=== PATIENT | male | born 1965 | race Caucasian/White ===

== ENCOUNTER 2022-07-16 15:57 | Inpatient (IN) | payer BC ==
[~2022-07-16] VITALS: Ht 190.5 cm; Wt 125.0 kg
[2022-07-16 17:13] LABS: BASOPHILS # (AUTO) 0.1 10^3/uL (0.0-0.1); BASOPHILS % (AUTO) 0 % (0-10); EOSINOPHILS # (AUTO) 0.2 10^3/uL (0.0-0.3); EOSINOPHILS % (AUTO) 1 % (0-10); HEMATOCRIT 44 % (40-54); HEMOGLOBIN 15.4 g/dL (13.3-17.7); LYMPHOCYTES # (AUTO) 1.4 10^3/uL (1.0-4.0); LYMPHOCYTES % (AUTO) 7 % (12-44); MEAN CORPUSCULAR HEMOGLOBIN 32 pg (25-34); MEAN CORPUSCULAR HGB CONC 35 g/dL (32-36); MEAN CORPUSCULAR VOLUME 91 fL (80-99); MEAN PLATELET VOLUME 9.5 fL (9.0-12.2); MONOCYTES # (AUTO) 2.3 10^3/uL (0.0-1.0); MONOCYTES % (AUTO) 11 % (0-12); NEUTROPHILS # (AUTO) 17.7 10^3/uL (1.8-7.8); NEUTROPHILS % (AUTO) 81 % (42-75); PLATELET COUNT 275 10^3/uL (130-400); WHITE BLOOD COUNT 21.9 10^3/uL (4.3-11.0)
--- NOTE | 2022-07-16 17:13 | ED Abdominal Pain ---
General Chief Complaint: Abdominal/GI Problems Stated Complaint: ABDOMINAL PAIN Nursing Triage Note: PT STATES HAVING A PERF BOWEL, WAS SEEN IN [facility], FLUID AND ABSCESS, CT DONE THERE THIS MORNING, LOW ABD PAIN FOR ABOUT A WK, NORMAL BM 6 TIMES TODAY SMALL AMOUNTS Source of Information: Patient Exam Limitations: No Limitations History of Present Illness Date Seen by Provider: Jul 16, 2022 Time Seen by Provider: 16:57 Initial Comments 56-year-old male presents to the ED with reports of left lower quadrant abdominal pain since last Friday. He states that he thought he was constipated, and was taking laxatives. Reports he has had several small bowel movements, denies diarrhea. Reports that he saw his primary today who ordered a CT of his abdomen pelvis. He was called with the result told to come to the ER due to a perforated bowel. He denied known fevers, although he was found to have a temperature of 100.9 here today. Denies any chest pain, shortness of air, nausea, vomiting. Last bowel movement was about 2 hours ago. His last meal was last night. He reports reports that he sipped on a Coke around 2 PM, he did not drink a full can. Past medical history includes A-fib, hyperlipidemia, hypothyroidism. He takes flecainide, atorvastatin, levothyroxine, carvedilol, Xarelto. Allergies and Home Medications Allergies Coded Allergies: No Known Drug Allergies (Unverified , 07/16/22) Patient Home Medication List Home Medication List Reviewed: Yes Atorvastatin Calcium (Atorvastatin Calcium) 10 Mg Tablet, 10 MG PO 1800, (Reported) Entered as Reported by: JODY GARRETT on 07/17/221202 Last Action: Held Carvedilol (Carvedilol) 25 Mg Tablet, 25 MG PO BID WITH MEALS, (Reported) Entered as Reported by: JODY GARRETT on 07/17/221202 Last Action: Held Cetirizine HCl (Cetirizine HCl) 10 Mg Tablet, 10 MG PO DAILY, (Reported) Entered as Reported by: JODY GARRETT on 07/17/221202 Last Action: Held Flecainide Acetate (Flecainide Acetate) 100 Mg Tablet, 100 MG PO BID WITH MEALS, (Reported) Entered as Reported by: JODY GARRETT on 07/17/221202 Last Action: Continued L.acidoph & Paracasei,B.lactis (Probiotic) 10 Billion Cell Capsule, 1 EACH PO DAILY, (Reported) Entered as Reported by: JODY GARRETT on 07/17/221202 Last Action: Held Levothyroxine Sodium (Levothyroxine Sodium) 50 Mcg Tablet, 50 MCG PO DAILY, (Reported) Entered as Reported by: JODY GARRETT on 07/17/221202 Last Action: Held Multivitamin (Multivitamin) 1 Each Tablet, 1 EACH PO 1800, (Reported) Entered as Reported by: JODY GARRETT on 07/17/221202 Last Action: Held Rivaroxaban (Xarelto Tablet) 20 Mg Tablet, 20 MG PO 1800, (Reported) Entered as Reported by: JODY GARRETT on 07/17/221202 Last Action: Held Review of Systems Review of Systems Constitutional: see HPI Past Fmnddhy-Yzyuld-Teijvq Hx Patient Social History Tobacco Use?: No Substance use?: No Alcohol Use?: No Past Medical History Surgery/Hospitalization HX: HEART ABLATION HX OF A FIB Physical Exam Vital Signs Vital Signs - First Documented 07/16/22 16:38 Temp 38.0 Pulse 89 Resp 22 B/P (MAP) 122/82 (95) Pulse Ox 95 O2 Delivery Room Air Capillary Refill : Less Than 3 Seconds Height/Weight/BMI Height: '" Weight: lbs. oz. kg; 34.00 BMI Method: General Appearance: WD/WN, mild distress Neck: supple, normal inspection Respiratory: lungs clear, normal breath sounds, no respiratory distress, no accessory muscle use Cardiovascular: regular rate, rhythm, no edema, no gallop, no JVD, no murmur Gastrointestinal: normal bowel sounds, soft (Soft in right lower, right upper, left upper), guarding (Left lower quadrant); No rebound; tenderness (Left lower quadrant) Neurologic/Psychiatric: alert, normal mood/affect Skin: normal color, warm/dry Focused Exam Lactate Level 07/16/22 17:00: Lactic Acid Level 1.01 Lactic Acid Level Laboratory Tests Test 07/16/22 17:00 Lactic Acid Level 1.01 MMOL/L (0.50-2.00) Progress/Results/Core Measures Results/Orders Lab Results Laboratory Tests Test 07/16/22 17:00 07/16/22 17:13 Range/Units White Blood Count 21.9 H 4.3-11.0 10^3/uL Red Blood Count 4.76 4.30-5.52 10^6/uL Hemoglobin 15.4 13.3-17.7 g/dL Hematocrit 44 40-54 % Mean Corpuscular Volume 91 80-99 fL Mean Corpuscular Hemoglobin 32 25-34 pg Mean Corpuscular Hemoglobin Concent 35 32-36 g/dL Red Cell Distribution Width 12.9 10.0-14.5 % Platelet Count 275 130-400 10^3/uL Mean Platelet Volume 9.5 9.0-12.2 fL Immature Granulocyte % (Auto) 1 % Neutrophils (%) (Auto) 81 H 42-75 % Lymphocytes (%) (Auto) 7 L 12-44 % Monocytes (%) (Auto) 11 0-12 % Eosinophils (%) (Auto) 1 0-10 % Basophils (%) (Auto) 0 0-10 % Neutrophils # (Auto) 17.7 H 1.8-7.8 10^3/uL Lymphocytes # (Auto) 1.4 1.0-4.0 10^3/uL Monocytes # (Auto) 2.3 H 0.0-1.0 10^3/uL Eosinophils # (Auto) 0.2 0.0-0.3 10^3/uL Basophils # (Auto) 0.1 0.0-0.1 10^3/uL Immature Granulocyte # (Auto) 0.2 H 0.0-0.1 10^3/uL Neutrophils % (Manual) 82 % Lymphocytes % (Manual) 9 % Monocytes % (Manual) 6 % Eosinophils % (Manual) 1 % Band Neutrophils 2 % Blood Morphology Comment NORMAL Prothrombin Time 19.3 H 12.2-14.7 SEC INR Comment 1.6 H 0.8-1.4 Activated Partial Thromboplast Time 35 24-35 SEC Sodium Level 138 135-145 MMOL/L Potassium Level 3.9 3.6-5.0 MMOL/L Chloride Level 102 98-107 MMOL/L Carbon Dioxide Level 25 21-32 MMOL/L Anion Gap 11 5-14 MMOL/L Blood Urea Nitrogen 10 7-18 MG/DL Creatinine 1.10 0.60-1.30 MG/DL Estimat Glomerular Filtration Rate 80 BUN/Creatinine Ratio 9 Glucose Level 111 H 70-105 MG/DL Lactic Acid Level 1.01 0.50-2.00 MMOL/L Calcium Level 9.1 8.5-10.1 MG/DL Corrected Calcium 9.3 8.5-10.1 MG/DL Total Bilirubin 0.9 0.1-1.0 MG/DL Aspartate Amino Transf (AST/SGOT) 19 5-34 U/L Alanine Aminotransferase (ALT/SGPT) 27 0-55 U/L Alkaline Phosphatase 73 40-136 U/L Total Protein 6.9 6.4-8.2 GM/DL Albumin 3.8 3.2-4.5 GM/DL Urine Color YELLOW Urine Clarity SL CLOUDY Urine pH 6.0 5-9 Urine Specific [place] 1.020 1.016-1.022 Urine Protein 1+ H NEGATIVE Urine Glucose (UA) NEGATIVE NEGATIVE Urine Ketones NEGATIVE NEGATIVE Urine Nitrite NEGATIVE NEGATIVE Urine Bilirubin NEGATIVE NEGATIVE Urine Urobilinogen 0.2 < = 1.0 MG/DL Urine Leukocyte Esterase NEGATIVE NEGATIVE Urine RBC (Auto) TRACE-I H NEGATIVE Urine RBC 0-2 /HPF Urine WBC RARE /HPF Urine Squamous Epithelial Cells NONE /HPF Urine Crystals NONE /LPF Urine Bacteria FEW H /HPF Urine Casts NONE /LPF Urine Mucus NEGATIVE /LPF Urine Culture Indicated CULTURE PENDING Micro Results Microbiology 07/16/22 Blood Culture - Preliminary, Resulted No growth 07/16/22 Urine Culture - Final, Complete NO GROWTH 07/16/22 Blood Culture - Preliminary, Resulted No growth My Orders Orders - DANIEL WHARTON APRN Cbc With Automated Diff (07/16/22 17:07) Comprehensive Metabolic Panel (07/16/22 17:07) Blood Culture (07/16/22 17:07) Urinalysis (07/16/22 17:07) Urine Culture (07/16/22 17:07) Protime With Inr (07/16/22 17:07) Partial Thromboplastin Time (07/16/22 17:07) Ed Iv/Invasive Line Start (07/16/22 17:07) Remove Rings In Anticipation O (07/16/22 17:07) Lactic Acid Analyzer (07/16/22 17:07) Piperacillin Sodium/Tazobactam (Zosyn Vi (07/16/22 17:15) Ns Iv 1000 Ml (Sodium Chloride 0.9%) (07/16/22 17:15) Manual Differential (07/16/22 17:00) Piperacillin Sodium/Tazobactam (Zosyn Vi (07/16/22 17:35) Ns (Ivpb) (Sodium Chloride 0.9% Ivpb Bag (07/16/22 17:36) Fentanyl Inj (Sublimaze Injection) (07/16/22 18:45) Ketorolac Injection (Toradol Injection) (07/16/22 18:45) Metronidazole 500mg/100ml Ivpb (Flagyl 5 (07/16/22 18:45) Ed Admission (Communication) (07/16/22 18:40) Medications Given in ED Vital Signs/I&O 07/16/22 07/16/22 16:38 18:17 Temp 38.0 38.1 Pulse 89 Resp 22 B/P (MAP) 122/82 (95) Pulse Ox 95 O2 Delivery Room Air Blood Pressure Mean: 95 Progress Progress Note : Time: 17:12 Progress Note Patient seen and evaluated, resting in bed, mild distress. Septic work-up initiated including CBC, CMP, coags, lactic, blood cultures x2, UA. Zosyn ordered, IV fluids. 1719 Dr. Gerard, surgery, called for consultation. He is going to send a medical student to see patient. 1830 Labs reviewed. CBC shows elevated WBC 21.9, elevated neutrophil % 81. CMP grossly normal. Lactic acid normal. Coags show elevated PT 19.3, and elevated INR 1.6. UA shows 1+ protein, trace RBC, and few bacteria. Dr. Gerard will admit patient, he wants medicine and cardiology to be consulted for comorbidities. He would like me to place bridge orders. He wants zosyn continued and flagyl ordered as well. Departure Communication (Admissions) Time/Spoke to Consulting Phy: 17:19 Dr. Gerard, surgery, called for consult. See progress note. Impression Primary Impression: Perforated bowel Additional Impression: Diverticulitis Disposition: ADMITTED INPATIENT Condition: Stable Admissions Decision to Admit Reason: Admit from ER (General) Decision to Admit/Date: Jul 16, 2022 Time/Decision to Admit Time: 18:20 Departure-Patient Inst. Referrals: DAYSI CROWELL MD (PCP) Primary Care Physician DANIEL WHARTON APRN Jul 16, 2022 17:13
[2022-07-16] MEDS ORDERED: PIPERACILLIN SODIUM/TAZOBACTAM 4.5 GM in NS (IVPB) 100 ML IV ONE (17:15)
[2022-07-16] MEDS: NS IV 1000 ML 1,000 ML IV SCH ×2 (17:19→18:29)
[2022-07-16 17:25] LABS: BILIRUBIN,URINE NEGATIVE (NEGATIVE); CLARITY,URINE SL CLOUDY; COLOR,URINE YELLOW; GLUCOSE, URINE (UA) NEGATIVE (NEGATIVE); KETONES,URINE NEGATIVE (NEGATIVE); LEUKOCYTE ESTERASE ,URINE NEGATIVE (NEGATIVE); NITRITE,URINE NEGATIVE (NEGATIVE); PROTEIN,URINE 1+ (NEGATIVE)
[2022-07-16 17:33] LABS: ALBUMIN 3.8 GM/DL (3.2-4.5); POTASSIUM 3.9 MMOL/L (3.6-5.0)
[2022-07-16 17:34] LABS: CALCIUM 9.1 MG/DL (8.5-10.1)
[2022-07-16 17:35] LABS: TOTAL PROTEIN 6.9 GM/DL (6.4-8.2)
[2022-07-16] MEDS ORDERED: PIPERACILLIN/TAZO 4.5 GM VIAL (ZOSYN) IV ONE (17:35)
[2022-07-16] MEDS ORDERED: NS (IVPB) 0 ML ONE (17:36)
[2022-07-16 17:37] LABS: BILIRUBIN,TOTAL 0.9 MG/DL (0.1-1.0)
[2022-07-16 17:39] LABS: CREATININE SERUM 1.1 MG/DL (0.60-1.30)
[2022-07-16 17:46] LABS: INR 1.6 (0.8-1.4); PROTHROMBIN TIME PATIENT 19.3 SEC (12.2-14.7)
[2022-07-16 17:52] LABS: BACTERIA,URINE FEW /HPF; RBC,URINE 0-2 /HPF; WBC,URINE RARE /HPF
[2022-07-16 18:07] LABS: BAND NEUTROPHILS 2 %; EOSINOPHILS % (MANUAL) 1 %; LYMPHOCYTES % (MANUAL) 9 %; MONOCYTES % (MANUAL) 6 %; NEUTROPHILS % (MANUAL) 82 %; RBC MORPH NORMAL
[2022-07-16] MEDS ORDERED: fentaNYL INJ 100 MCG/2 ML AMP IVP ONE (18:45)
[2022-07-16] MEDS ORDERED: KETOROLAC 30 MG/ML VIAL IVP ONE (18:45)
[2022-07-16] MEDS ORDERED: metroNIDAZOLE 500MG/100ML IVPB 100 ML IV ONE (18:45)
--- NOTE | 2022-07-16 18:54 | History & Physical-Surgical ---
History of Present Illness History of Present Illness Patient Consulted On(michelle/time) 07/16/22 18:48 Date Seen by Provider: Jul 16, 2022 Time Seen by Provider: 06:15 History of Present Illness 56yo male presented to the ER with chief complaint of abdominal pain. He said the pain has been going on for a week and has been progressively getting worse. The pain began as crampy and felt like constipation. He took Miralax several times which helped a little bit. He had normal bowel movements and denied any constipation or diarrhea. The abdominal pain got bad enough that he went to go see his family doctor who ordered a CT of his abdomen which showed evidence of a perforation, they told him to come to the [facility] ER. Currently he says his abdominal pain is about a 5/10 while resting and goes to 8/10 when he coughs. The pain does not worsen with movement, nothing has made the pain much better. The pain is localized to the LLQ and has no pain anywhere else. His last meal was last night, he had a small drink of soda about 2pm today. He has a history of AFib and takes Xeralto, the last time he took it was last night. CC: LLQ abdominal pain. Patient is a 56 year old male who has been having llq abodminal pain for about a week. Has felt constipated and been taking MIralax and then having better bowel movements. Pain is worse with movement or has to cough. Better when laying still. No radiation of pain. Rate 5-8/10. Patient saw pcp who ordred cat scan and told to go to ER for further evaluation. CT scan i reviewed and read was: Findings of sigmoid diverticulitis with evidence of perforation. No loculated collection. Slight fever at times and occasion chills. Patient with History of Afib and takes Xeralto and believes last taken was last night. Allergies and Home Medications Allergies Coded Allergies: No Known Drug Allergies (Unverified , 07/16/22) Patient Home Medication List Home Medication List Reviewed: Yes Past Msxwprk-Wgsdde-Yyuapt Hx Patient Social History Smoking Status: Never a Smoker Alcohol Use?: No Have you traveled recently?: No Seasonal Allergies Seasonal Allergies: Yes Surgeries History of Surgeries: Yes Surgeries: Cardiac (ablation) Respiratory History of Respiratory Disorde: No Cardiovascular History of Cardiac Disorders: Yes Cardiac Disorders: Atrial Fibrillation, High Cholesterol Gastrointestinal History of Gastrointestinal Di: No Musculoskeletal History of Musculoskeletal Dis: No Endocrine History of Endocrine Disorders: No HEENT History of HEENT Disorders: No Cancer History of Cancer: No Psychosocial History of Psychiatric Problem: No Integumentary History of Skin or Integumenta: No Reviewed Nursing Assessment Reviewed/Agree w Nursing PMH: Yes Family Medical History Significant Family History: Heart Disease (several generations on his fathers side), Diabetes (dad) Review of Systems-General Constitutional: chills, fever, malaise EENTM: No blurred vision, No double vision, No vision loss, No hoarseness, No throat pain Respiratory: cough; No short of breath, No wheezing Cardiovascular: No chest pain, No palpitations, No syncope Gastrointestinal: abdominal pain (LLQ); No constipation, No diarrhea, No dysphagia, No hematemesis, No heartburn, No jaundice; loss of appetite; No melena, No nausea, No vomiting Genitourinary: No dysuria, No frequency, No hematuria Musculoskeletal: No back pain, No joint pain Skin: No change in color, No lesions, No lumps, No rash Psychiatric/Neurological: Denies Anxiety, Denies Depressed, Denies Headache All Other Systems Reviewed Negative Unless Noted: Yes (Negative excepted noted.) Physical Exam-General Problems Physical Exam Vital Signs Vital Signs - First Documented 07/16/22 16:38 Temp 38.0 Pulse 89 Resp 22 B/P (MAP) 122/82 (95) Pulse Ox 95 O2 Delivery Room Air Capillary Refill : Less Than 3 Seconds General Appearance: mild distress, obese HEENT: PERRL/EOMI, pharynx normal Neck: non-tender, supple Respiratory: chest non-tender, normal breath sounds, no respiratory distress, no accessory muscle use Cardiovascular: regular rate, rhythm, no JVD Gastrointestinal: No guarding; tenderness (LLQ focal tenderness); No hernia, No mass; other (negative heel strike b/l ) Rectal: deferred Back: no CVA tenderness, no vertebral tenderness Extremities: non-tender, no pedal edema Neurologic/Psychiatric: alert, oriented x 3 Skin: normal color, warm/dry Lymphatic: no adenopathy Data Review Labs Laboratory Tests 07/16/22 17:00: White Blood Count 21.9H, Red Blood Count 4.76, Hemoglobin 15.4, Hematocrit 44, Mean Corpuscular Volume 91, Mean Corpuscular Hemoglobin 32, Mean Corpuscular Hemoglobin Concent 35, Red Cell Distribution Width 12.9, Platelet Count 275, Mean Platelet Volume 9.5, Immature Granulocyte % (Auto) 1, Neutrophils (%) (Auto) 81H, Lymphocytes (%) (Auto) 7L, Monocytes (%) (Auto) 11, Eosinophils (%) (Auto) 1, Basophils (%) (Auto) 0, Neutrophils # (Auto) 17.7H, Lymphocytes # (Auto) 1.4, Monocytes # (Auto) 2.3H, Eosinophils # (Auto) 0.2, Basophils # (Auto) 0.1, Immature Granulocyte # (Auto) 0.2H, Neutrophils % (Manual) 82, Lymphocytes % (Manual) 9, Monocytes % (Manual) 6, Eosinophils % (Manual) 1, Band Neutrophils 2, Blood Morphology Comment NORMAL, Prothrombin Time 19.3H, INR Comment 1.6H, Activated Partial Thromboplast Time 35, Sodium Level 138, Potassium Level 3.9, Chloride Level 102, Carbon Dioxide Level 25, Anion Gap 11, Blood Urea Nitrogen 10, Creatinine 1.10, Estimat Glomerular Filtration Rate 80, BUN/Creatinine Ratio 9, Glucose Level 111H, Lactic Acid Level 1.01, Calcium Level 9.1, Corrected Calcium 9.3, Total Bilirubin 0.9, Aspartate Amino Transf (AST/SGOT) 19, Alanine Aminotransferase (ALT/SGPT) 27, Alkaline Phosphatase 73, Total Protein 6.9, Albumin 3.8 07/16/22 17:13: Urine Color YELLOW, Urine Clarity SL CLOUDY, Urine pH 6.0, Urine Specific [place] 1.020, Urine Protein 1+H, Urine Glucose (UA) NEGATIVE, Urine Ketones NEGATIVE, Urine Nitrite NEGATIVE, Urine Bilirubin NEGATIVE, Urine Urobilinogen 0.2, Urine Leukocyte Esterase NEGATIVE, Urine RBC (Auto) TRACE-IH, Urine RBC 0-2, Urine WBC RARE, Urine Squamous Epithelial Cells NONE, Urine Crystals NONE, Urine Bacteria FEWH, Urine Casts NONE, Urine Mucus NEGATIVE, Urine Culture Indicated CULTURE PENDING Assessment/Plan Assessment/Plan Admission Diagonsis perforated diverticulitis LLQ Abdominal pain- Leukocytosis History of AFib [place] use of anticoagulant Admission Status: Inpatient Order (span 2 midnights) Reason for Inpatient Admission: Patient will need Iv antibiotics bowel rest and possible surgical intervention requiring over 2 midnights. Assessment/Plan perforated diverticulitis LLQ Abdominal pain- Leukocytosis History of AFib [place] use of anticoagulant NPO IV fluids Zosyn, flagyl Pain control Hold xeralto Consult medicine and cardiology Currently on exam he has focal tenderness to llq. Will try conservative measures, but also this will allow anticoagulant to get out of his system making it safer if we do nee to do surgical intervention. Patient and family agree with plan. Repeat labs in am. 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 Pepcid. Supervisory-Addendum Brief Verification & Attestation Participated in pt care: history, MDM, physical Personally performed: exam, history, MDM, supervision of care Care discussed with: Medical Student Procedures: n/a Results interpretation: Verified all documentation Verification and Attestation of Medical Student E/M Service A medical student performed and documented this service in my presence. I reviewed and verified all information documented by the medical student and made modifications to such information, when appropriate. I personally performed the physical exam and medical decision making. Yajaira Gerard, Jul 16, 2022,21:47 SUPA FERRELL Jul 16, 2022 18:54 YAJAIRA GERARD DO Jul 16, 2022 21:41
[2022-07-16] MEDS ORDERED: LACTATED RINGERS 1,000 ML IV ONE (20:20)
[2022-07-16] MEDS ORDERED: ONDANSETRON 4 MG/2 ML (SDV) Z0FRAN IV PRN (22:00)
[2022-07-16 23:28] VITALS: BP 118/75
[2022-07-17] MEDS: PIPERACILLIN SODIUM/TAZOBACTAM 4.5 GM in NS (IVPB) 100 ML IV SCH ×2 (01:09→08:18)
[2022-07-17] MEDS: LACTATED RINGERS 1,000 ML IV SCH ×4 (01:11→17:37)
[2022-07-17 04:05] VITALS: BP 127/69
[2022-07-17] MEDS: metroNIDAZOLE 500MG/100ML IVPB 100 ML IV SCH ×2 (05:58→18:54)
[2022-07-17 05:59] LABS: BASOPHILS # (AUTO) 0.1 10^3/uL (0.0-0.1); BASOPHILS % (AUTO) 0 % (0-10); EOSINOPHILS # (AUTO) 0.2 10^3/uL (0.0-0.3); EOSINOPHILS % (AUTO) 1 % (0-10); HEMATOCRIT 39 % (40-54); HEMOGLOBIN 13.4 g/dL (13.3-17.7); LYMPHOCYTES # (AUTO) 1.1 10^3/uL (1.0-4.0); LYMPHOCYTES % (AUTO) 6 % (12-44); MEAN CORPUSCULAR HEMOGLOBIN 32 pg (25-34); MEAN CORPUSCULAR HGB CONC 35 g/dL (32-36); MEAN CORPUSCULAR VOLUME 93 fL (80-99); MEAN PLATELET VOLUME 9.7 fL (9.0-12.2); MONOCYTES # (AUTO) 1.7 10^3/uL (0.0-1.0); MONOCYTES % (AUTO) 10 % (0-12); NEUTROPHILS % (AUTO) 82 % (42-75); PLATELET COUNT 227 10^3/uL (130-400); WHITE BLOOD COUNT 17.1 10^3/uL (4.3-11.0)
[2022-07-17 06:15] LABS: POTASSIUM 3.6 MMOL/L (3.6-5.0)
[2022-07-17 06:16] LABS: CALCIUM 7.9 MG/DL (8.5-10.1)
[2022-07-17 06:21] LABS: CREATININE SERUM 0.98 MG/DL (0.60-1.30)
[2022-07-17 07:21] VITALS: BP 113/67
--- NOTE | 2022-07-17 07:34 | Progress Note - Surgery ---
SUPA FERRELL 07/17/22 0734: Subjective Date Seen by a Provider: Jul 17, 2022 Time Seen by a Provider: 07:15 Subjective/Events-last exam Patient says he is feeling better today. His abdominal pain is still localized to the LLQ and he says the pain is a consistent 3/10. Pain stayed at 3/10 on p alpation of the LLQ. He told me that he has been able to get up to void with no problems, however when I spoke with the patients RN he informed me the patients pain becomes nearly unbearable when the patient gets up to void and he needs time to rest after. Patient has not had a BM since prior to admission but he claims he has been passing gas. Review of Systems General: No Chills, No Night Sweats; Fatigue HEENT: No Head Aches, No Dysphasia; Sore Throat (from dry mouth) Pulmonary: No Dyspnea, No Cough Cardiovascular: No: Chest Pain, Palpitations, Lt Headedness Gastrointestinal: Abdominal Pain (LLQ); No: Nausea, Vomiting Genitourinary: No Dysuria, No Frequency, No Hematuria Musculoskeletal: No: neck pain, shoulder pain, back pain Neurological: Weakness; No: Change in speech, Confusion Focused Exam Lactate Level 07/16/22 17:00: Lactic Acid Level 1.01 Objective Exam Vital Signs Date Time Temp Pulse Resp B/P (MAP) Pulse Ox O2 Delivery O2 Flow Rate FiO2 07/17/22 07:21 38.5 82 18 113/67 (82) 92 Room Air 07/17/22 04:05 37.4 83 18 127/69 (88) 96 Room Air 07/16/22 23:28 36.6 83 18 118/75 (89) 96 Room Air 07/16/22 19:48 82 18 127/75 97 Room Air 07/16/22 18:17 38.1 07/16/22 16:38 38.0 89 22 122/82 (95) 95 Room Air I & O 07/17/22 07:00 Intake Total 1100 ml Output Total 1 ml Balance 1099 ml Capillary Refill : Less Than 3 Seconds General Appearance: No Apparent Distress, Obese HEENT: PERRL/EOMI, Moist Mucous Membranes Neck: Non Tender, Supple Respiratory: Lungs Clear, Normal Breath Sounds, No Accessory Muscle Use, No Respiratory Distress Cardiovascular: Regular Rate, Rhythm, No Murmur, Normal Peripheral Pulses Gastrointestinal: No guarding, No rebound; tenderness (LLQ focal tenderness); No hernia, No mass Extremity: Non Tender, No Calf Tenderness, No Pedal Edema Neurologic/Psychiatric: Alert, Oriented x3 Skin: Normal Color, Warm/Dry Lymphatic: No Adenopathy Results Lab Laboratory Tests 07/16/22 17:00: White Blood Count 21.9H, Red Blood Count 4.76, Hemoglobin 15.4, Hematocrit 44, Mean Corpuscular Volume 91, Mean Corpuscular Hemoglobin 32, Mean Corpuscular H emoglobin Concent 35, Red Cell Distribution Width 12.9, Platelet Count 275, Mean Platelet Volume 9.5, Immature Granulocyte % (Auto) 1, Neutrophils (%) (Auto) 81H , Lymphocytes (%) (Auto) 7L, Monocytes (%) (Auto) 11, Eosinophils (%) (Auto) 1, Basophils (%) (Auto) 0, Neutrophils # (Auto) 17.7H, Lymphocytes # (Auto) 1.4, Monocytes # (Auto) 2.3H, Eosinophils # (Auto) 0.2, Basophils # (Auto) 0.1, Immature Granulocyte # (Auto) 0.2H, Neutrophils % (Manual) 82, Lymphocytes % (Manual) 9, Monocytes % (Manual) 6, Eosinophils % (Manual) 1, Band Neutrophils 2, Blood Morphology Comment NORMAL, Prothrombin Time 19.3H, INR Comment 1.6H, Activated Partial Thromboplast Time 35, Sodium Level 138, Potassium Level 3.9, Chloride Level 102, Carbon Dioxide Level 25, Anion Gap 11, Blood Urea Nitrogen 10, Creatinine 1.10, Estimat Glomerular Filtration Rate 80, BUN/Creatinine Ratio 9, Glucose Level 111H, Lactic Acid Level 1.01, Calcium Level 9.1, Corrected Calcium 9.3, Total Bilirubin 0.9, Aspartate Amino Transf (AST/SGOT) 19, Alanine Aminotransferase (ALT/SGPT) 27, Alkaline Phosphatase 73, Total Protein 6.9, Albumin 3.8 07/16/22 17:13: Urine Color YELLOW, Urine Clarity SL CLOUDY, Urine pH 6.0, Urine Specific [place] 1.020, Urine Protein 1+H, Urine Glucose (UA) NEGATIVE, Urine Ketones NEGATIVE, Urine Nitrite NEGATIVE, Urine Bilirubin NEGATIVE, Urine Urobilinogen 0.2, Urine Leukocyte Esterase NEGATIVE, Urine RBC (Auto) TRACE-IH, Urine RBC 0- 2, Urine WBC RARE, Urine Squamous Epithelial Cells NONE, Urine Crystals NONE, Urine Bacteria FEWH, Urine Casts NONE, Urine Mucus NEGATIVE, Urine Culture Indicated CULTURE PENDING 07/17/22 05:39: White Blood Count 17.1H, Red Blood Count 4.13L, Hemoglobin 13.4, Hematocrit 39L, Mean Corpuscular Volume 93, Mean Corpuscular Hemoglobin 32, Mean Corpuscular Hemoglobin Concent 35, Red Cell Distribution Width 12.9, Platelet Count 227, Mean Platelet Volume 9.7, Immature Granulocyte % (Auto) 1, Neutrophils (%) (Auto) 82H, Lymphocytes (%) (Auto) 6L, Monocytes (%) (Auto) 10, Eosinophils (%) (Auto) 1, Basophils (%) (Auto) 0, Neutrophils # (Auto) 14.0H, Lymphocytes # (Auto) 1.1, Monocytes # (Auto) 1.7H, Eosinophils # (Auto) 0.2, Basophils # (Auto) 0.1, Immature Granulocyte # (Auto) 0.1, Sodium Level 137, Potassium Level 3.6, Chloride Level 107, Carbon Dioxide Level 20L, Anion Gap 10, Blood Urea Nitrogen 12, Creatinine 0.98, Estimat Glomerular Filtration Rate 92, BUN/Creatinine Ratio 12, Glucose Level 98, Calcium Level 7.9L Assessment/Plan Assessment/Plan Assessment/Plan perforated diverticulitis LLQ Abdominal pain- improved from yesterday Leukocytosis- improved to 17.1 from 21.9 on admission History of AFib Nursing Home use of anticoagulant NPO IV fluids Zosyn, flagyl Pain control, patient has only required one dose of pain medicine in the ER Hold xeralto Consult medicine and cardiology Currently on exam he has focal tenderness to llq. Will try conservative measures, but also this will allow anticoagulant to get out of his system making it safer if we do nee to do surgical intervention. Patient and family agree with plan. Repeat labs in am. SCD's for DVT prophylaxis, is on rawhide trimmer anticoagulant which currently on hold GI prophylaxis. [place]. YAJAIRA GERARD DO 07/17/222058: Subjective Subjective/Events-last exam NPO. Feeling a little better this morning. Pain in llq rates currently at 3/10. Passing flatus. Having low grade fever. WBC slightly down. Denies n/v sweats chills shortness of breath or chest pain at this time. Objective Exam General Appearance: No Apparent Distress, Obese HEENT: PERRL/EOMI, Moist Mucous Membranes Neck: Normal Inspection, Non Tender, Supple Respiratory: Chest Non Tender, No Accessory Muscle Use, No Respiratory Distress Cardiovascular: Regular Rate, Rhythm, No JVD Gastrointestinal: soft; No guarding, No rebound; tenderness (LLQ focal tenderness) Extremity: Non Tender, No Calf Tenderness Neurologic/Psychiatric: Alert, Oriented x3, Normal Mood/Affect Skin: Normal Color, Warm/Dry Lymphatic: No Adenopathy Assessment/Plan Assessment/Plan Assessment/Plan perforated diverticulitis LLQ Abdominal pain- improved from yesterday Leukocytosis- improved to 17.1 from 21.9 on admission History of AFib Nursing Home use of anticoagulant Will start on sips of clears IV fluids Rocephin, flagyl Pain control, patient has only required one dose of pain medicine in the ER Hold xeralto Consult medicine and cardiology Currently on exam he has focal tenderness to llq. Will try conservative measures, but also this will allow anticoagulant to get out of his system making it safer if we do nee to do surgical intervention. Exam slightly better than last night may still need surgical intervention Patient and family agree with plan. Repeat labs in am. SCD's for DVT prophylaxis, is on rawhide trimmer anticoagulant which currently on hold GI prophylaxis. Protonix Supervisory-Addendum Brief Verification & Attestation Participated in pt care: history, MDM, physical Personally performed: exam, history, MDM, supervision of care Care discussed with: Medical Student Procedures: n/a Results interpretation: Verified all documentation Verification and Attestation of Medical Student E/M Service A medical student performed and documented this service in my presence. I reviewed and verified all information documented by the medical student and made modifications to such information, when appropriate. I personally performed the physical exam and medical decision making. Yajaira Gerard, Jul 17, 2022,20:59 SUPA FERRELL Jul 17, 2022 07:34 YAJAIRA GERARD DO Jul 17, 2022 20:59
[2022-07-17] MEDS: PANTOPRAZOLE 40 MG (PROTONIX) VIAL IV SCH (08:42)
[2022-07-17 11:34] VITALS: BP 115/68
[2022-07-17] MEDS ORDERED: L.AC1CAP6 PO (12:03)
[2022-07-17] MEDS ORDERED: LEVO50TA6 PO (12:03)
[2022-07-17] MEDS ORDERED: RIVA20TA2 PO (12:03)
[2022-07-17] MEDS ORDERED: CARV25TA PO (12:03)
[2022-07-17] MEDS ORDERED: MULT-1136 PO (12:03)
[2022-07-17] MEDS ORDERED: FLEC100T PO (12:03)
[2022-07-17] MEDS ORDERED: CETI10TA17 PO (12:03)
[2022-07-17] MEDS ORDERED: ATOR10TA66 PO (12:03)
--- NOTE | 2022-07-17 13:50 | Consultation - Hospitalist ---
EVERETT WARREN 07/17/22 1350: HPI History of Present Illness: HPI/Chief Complaint Adalberto Jane is a 56yo male with a past medical history of AFib, H yperlipidemia, and Hypothyroidism presenting to the ED due to LLQ Pain since last Friday. Pt states that he has been having intermittent stabbing pain in the LLQ that worsened with cough, sneeze, or road bumps. Pt tried Miralax which caused bowel movements, and condition seemed to improve until he experienced an aggravating factor. Despite the pain pt stated that he was still able to go to work. Pt visited his PCP in [place] and received a CT abdomen, and then was told to go to ED 07/16/22. At time of admission, pain seemed to be a 5/10 at rest and with movement was an 8/10. Pt denies any N/V/D, Chest Pain, Cough, and Congestion. 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 Patients Allergies have been reviewed. Allergies Allergies Coded Allergies No Known Drug Allergies (Unverified07/16/22) Past Qfgmnug-Ofjbbu-Rybvop Hx Patient Social History Tobacco Use?: Yes Smoking Status: Never a Smoker Smokeless type used: Chew Smokeless Tobacco Frequency: Current Someday User Use of E-Cig and/or Vaping dev: No Substance use?: No Substance type: Caffeine, Nicotine Alcohol Use?: No Pt feels they are or have been: No Immunizations Up To Date Tetanus Booster (TDap): Less Than 5 Years Hepatitis A: No Hepatitis B: No Seasonal Allergies Seasonal Allergies: Yes Current Status Advance Directives: Yes Advance Directive Location: Home Communicates: Verbally Primary Language: Upper Sorbian Preferred Spoken Language: Upper Sorbian Is interpretation needed?: No Implanted or Applied Medical D: Stents Past Medical History Surgeries: Cardiac (ablation) Atrial Fibrillation, High Cholesterol Family Medical History Heart Disease (several generations on his fathers side), Diabetes (dad) Review of Systems Constitutional: No chills; fever Respiratory: No cough, No short of breath Cardiovascular: No chest pain Gastrointestinal: abdominal pain (LLQ); No diarrhea, No nausea, No vomiting Physical Exam Physical Exam Vital Signs Vital Signs - First Documented 07/16/22 16:38 Temp 38.0 Pulse 89 Resp 22 B/P (MAP) 122/82 (95) Pulse Ox 95 O2 Delivery Room Air Capillary Refill : Less Than 3 Seconds Height, Weight, BMI Height: '" Weight: lbs. oz. kg; 34.16 BMI Method: General Appearance: No Apparent Distress, Obese HEENT: PERRL/EOMI, Moist Mucous Membranes Neck: Non Tender, Supple Respiratory: Lungs Clear, Normal Breath Sounds, No Accessory Muscle Use, No Respiratory Distress Cardiovascular: Regular Rate, Rhythm, No Murmur, Normal Peripheral Pulses Gastrointestinal: No Guarding, No Rebound; Tenderness (LLQ) Extremity: Non Tender, No Calf Tenderness, No Pedal Edema Neurologic/Psychiatric: Alert, Oriented x3 Skin: Normal Color, Warm/Dry Lymphatic: No Adenopathy Results Results/Procedures Labs Laboratory Tests 07/16/22 17:00 07/17/22 05:39 Patient resulted labs reviewed. Imaging CT ABDOMEN/PELVIS W EXAMINATION: CT abdomen and pelvis with intravenous contrast. TECHNIQUE: Multiple contiguous axial images were obtained through the abdomen and pelvis after the uneventful administration of intravenous contrast. All CT scans use one or more of the following dose optimizing techniques: automated exposure control, MA and/or KvP adjustment based on patient size and exam type or iterative reconstruction. HISTORY: LLQ PAIN COMPARISON: None available. FINDINGS: Lung bases: The lung bases are clear. Solid organs: The liver is normal without focal lesion. The gallbladder is normal. There is no biliary ductal dilation. Pancreas is normal. Spleen is normal. Adrenal glands are normal. The kidneys are normal without hydronephrosis. Bowel: The stomach and small bowel are normal without obstruction. There is scattered colonic diverticulosis. There is focal inflammatory stranding, wall thickening associated with multiple prominent diverticula in the sigmoid colon. The appendix is normal. Peritoneum: There is mild amount of free air and free fluid along the sigmoid colon mesentery without loculated fluid collection. No suspicious lymphadenopathy. Vasculature: Normal without aneurysm. Musculoskeletal: Degenerative changes of the spine without suspicious osseous lesion or compression fracture. Pelvis: The prostate gland is normal. There is mild bladder wall thickening. IMPRESSION: 1. Findings of sigmoid diverticulitis with evidence of perforation. No loculated collection. Assessment/Plan Assessment and Plan Assess & Plan/Chief Complaint Adalberto Jane is a 56yo male presenting with Acute Diverticulitis w/ Perf oration. Acute Diverticulitis w/ Perforation - Managed by General Surgery CT Abdomen: Sigmoid Diverticulitis with evidence of Perforation NPO and Bowel Rest IVF IV Antibiotics- Zosyn and Ceftriaxone LLQ Pain Pain Medication as needed Atrial Fibrillation Carvedilol Held Rivaroxaban Held Flecainide Acetate Held Hyperlipidemia Atorvastatin Held Hypothyroidism Rivaroxaban Held Diagnosis/Problems Diagnosis/Problems (1) Hyperlipidemia (2) Atrial fibrillation Status: Chronic Qualifiers: Atrial fibrillation type: paroxysmal Qualified Codes: I48.0 - Paroxysmal atrial fibrillation (3) Hypothyroidism Status: Chronic (4) Diverticulitis (5) Perforated bowel MIGUEL OLSON MD 07/17/22 1600: HPI History of Present Illness: Source: patient Exam Limitations: no limitations Past Zikmate-Adqrwr-Qexwod Hx Past Medical History Atrial Fibrillation Family Medical History No Pertinent Family Hx Results Results/Procedures Imaging: Reviewed Imaging Films, Reviewed Imaging Report Assessment/Plan Assessment and Plan Assess & Plan/Chief Complaint Admitted to surgery with acute perforated diverticulitis. Started on IV antibiotics. Attempting conservative medical management. Resume home meds when allowed to take meds by mouth, per surgery. Consider discontinuing Flagyl, no indication for double anaerobic coverage. We will follow as needed. Please contact the hospitalist buttonhole tacker with any questions or concerns. Diagnosis/Problems Diagnosis/Problems (1) Diverticulitis of large intestine with perforation Status: Acute Qualifiers: Diverticulitis bleeding: without bleeding Qualified Codes: K57.20 - Diverticulitis of large intestine with perforation and abscess without bleeding (2) Hyperlipidemia (3) Atrial fibrillation Status: Chronic Qualifiers: Atrial fibrillation type: paroxysmal Qualified Codes: I48.0 - Paroxysmal atrial fibrillation (4) Hypothyroidism Status: Chronic Supervisory-Addendum Brief Verification & Attestation Participated in pt care: history, MDM, physical Personally performed: exam, history, MDM, supervision of care Care discussed with: Medical Student Procedures: n/a Results interpretation: Verified all documentation A medical student performed and documented this service in my presence. I reviewed and verified all information documented by the medical student and made modifications to such information, when appropriate. I personally performed the physical exam and medical decision making. EVERETT WARREN Jul 17, 2022 13:50 MIGUEL OLSON MD Jul 17, 2022 16:00
[2022-07-17] MEDS: cefTRIAXone 2,000 MG/NS 50 ML IVPB IV SCH ×2 (13:51)
[2022-07-17 16:47] VITALS: BP 140/75
[2022-07-17 20:00] VITALS: BP 137/78
[2022-07-17 23:08] VITALS: BP 135/78
[2022-07-18 04:00] VITALS: BP 129/72
[2022-07-18] MEDS: LACTATED RINGERS 1,000 ML IV SCH ×2 (04:12→14:14)
[2022-07-18 05:55] LABS: HEMATOCRIT 36 % (40-54); HEMOGLOBIN 12.9 g/dL (13.3-17.7); MEAN CORPUSCULAR HEMOGLOBIN 33 pg (25-34); MEAN CORPUSCULAR HGB CONC 35 g/dL (32-36); MEAN CORPUSCULAR VOLUME 92 fL (80-99); MEAN PLATELET VOLUME 9.8 fL (9.0-12.2); PLATELET COUNT 227 10^3/uL (130-400); WHITE BLOOD COUNT 16.4 10^3/uL (4.3-11.0)
[2022-07-18] MEDS: metroNIDAZOLE 500MG/100ML IVPB 100 ML IV SCH ×2 (05:57→18:19)
[2022-07-18 06:19] LABS: CALCIUM 8.2 MG/DL (8.5-10.1); CREATININE SERUM 0.89 MG/DL (0.60-1.30); MAGNESIUM 1.8 MG/DL (1.6-2.4); POTASSIUM 3.3 MMOL/L (3.6-5.0)
--- NOTE | 2022-07-18 07:19 | Progress Note - Surgery ---
SUPA FERRELL 07/18/22 0719: Subjective Date Seen by a Provider: Jul 18, 2022 Time Seen by a Provider: 07:10 Subjective/Events-last exam Patient says he is feeling a little better today. He has had 2 BMs this morning, he is voiding regularly. He is up and walking around the hospital as often as he can with no problems. His abdominal pain is consistently rated as a 3/10 and he says he thinks it feels better than yesterday. He has not required pain medication. He is concerned about getting his heart medication because he's worried about going back into Afib. Review of Systems HEENT: No Head Aches, No Dysphasia, No Sore Throat Pulmonary: No Dyspnea, No Cough Cardiovascular: No: Chest Pain, Palpitations, Lt Headedness Gastrointestinal: Abdominal Pain, Other (he said his stools are loose but not diarrhea); No: Nausea, Vomiting Genitourinary: No Dysuria, No Frequency Musculoskeletal: No: neck pain, shoulder pain, back pain Neurological: No: Weakness, Numbness, Confusion Focused Exam Lactate Level 07/16/22 17:00: Lactic Acid Level 1.01 Objective Exam Vital Signs Date Time Temp Pulse Resp B/P (MAP) Pulse Ox O2 Delivery O2 Flow Rate FiO2 07/18/22 04:00 38.1 84 16 129/72 (91) 93 Room Air 07/17/22 23:08 38.1 87 16 135/78 (97) 94 Room Air 07/17/22 20:00 Room Air 07/17/22 20:00 37.7 91 16 137/78 (97) 95 Room Air 07/17/22 16:47 37.4 85 18 140/75 (96) 95 Room Air 07/17/22 11:34 38.0 80 18 115/68 (84) 93 Room Air 07/17/22 08:00 Room Air 07/17/22 07:21 38.5 82 18 113/67 (82) 92 Room Air I & O 07/18/22 07:00 Intake Total 1100 ml Balance 1100 ml Capillary Refill : Less Than 3 Seconds General Appearance: No Apparent Distress, Obese HEENT: PERRL/EOMI, Moist Mucous Membranes Neck: Normal Inspection, Non Tender, Supple Respiratory: Lungs Clear, Normal Breath Sounds, No Accessory Muscle Use, No Respiratory Distress Cardiovascular: Regular Rate, Rhythm, No JVD Gastrointestinal: soft; No guarding, No rebound; tenderness (LLQ focal tenderness) Extremity: Non Tender, No Calf Tenderness Neurologic/Psychiatric: Alert, Oriented x3 Skin: Normal Color, Warm/Dry Lymphatic: No Adenopathy Results Lab Laboratory Tests 07/18/22 05:30: White Blood Count 16.4H, Red Blood Count 3.95L, Hemoglobin 12.9L, Hematocrit 36L , Mean Corpuscular Volume 92, Mean Corpuscular Hemoglobin 33, Mean Corpuscular Hemoglobin Concent 35, Red Cell Distribution Width 12.7, Platelet Count 227, Mean Platelet Volume 9.8, Sodium Level 137, Potassium Level 3.3L, Chloride Level 107, Carbon Dioxide Level 20L, Anion Gap 10, Blood Urea Nitrogen 13, Creatinine 0.89, Estimat Glomerular Filtration Rate 102, BUN/Creatinine Ratio 15, Glucose Level 93, Calcium Level 8.2L, Magnesium Level 1.8 Microbiology 07/16/22 Blood Culture - Preliminary, Resulted No growth 07/16/22 Urine Culture - Final, Complete NO GROWTH Assessment/Plan Assessment/Plan Assessment/Plan perforated diverticulitis LLQ Abdominal pain- improved from yesterday Leukocytosis- improved to 17.1 from 21.9 on admission History of [facility]ib [facility] use of anticoagulant Start on sips of clears yesterday and he tolerated well IV fluids Rocephin, flagyl Pain control is well controlled, has not received pain meds since being in the ER, morphine PRN if this changes Hold xeralto Consult medicine and cardiology, is concerned that he is not getting his home medications Currently on exam he has focal tenderness to llq. Will try conservative measures, but also this will allow anticoagulant to get out of his system making it safer if we do nee to do surgical intervention. If WBC continues to decline and fever does not increase, consider repeat CT tomorrow Exam better than yesterday, may still need surgical intervention Patient and family agree with plan. Repeat labs in am. Patient is ambulating frequently for DVT prophylaxis. SCDs ordered, pt. not wearing them GI prophylaxis. Protonix YAJAIRA GERARD DO 07/18/22 0955: Subjective Subjective/Events-last exam Feeling a little better today. Having bowel function. Pain improving. Low grade fever. Denies n/v fever sweats chills shortness of breath or chest pain. Objective Exam General Appearance: No Apparent Distress, Obese HEENT: PERRL/EOMI, Moist Mucous Membranes Neck: Normal Inspection, Non Tender, Supple Respiratory: Chest Non Tender, No Accessory Muscle Use, No Respiratory Distress Cardiovascular: Regular Rate, Rhythm, No JVD Gastrointestinal: soft; No guarding, No rebound; tenderness (LLQ improving) Extremity: Non Tender, No Calf Tenderness Neurologic/Psychiatric: Alert, Oriented x3 Skin: Normal Color, Warm/Dry Lymphatic: No Adenopathy Assessment/Plan Assessment/Plan Assessment/Plan perforated diverticulitis LLQ Abdominal pain- improved from yesterday Leukocytosis- improved to 17.1 from 21.9 on admission History of [facility] use of anticoagulant Start on sips of clears yesterday and he tolerated well IV fluids Rocephin, flagyl Pain control is well controlled, has not received pain meds since being in the ER, morphine PRN if this changes Hold xeralto Consult medicine and cardiology, is concerned that he is not getting his home medications Currently on exam he has tenderness to llq and improving. Will try conservative measures, but also this will allow anticoagulant to get out of his system making it safer if we do need to do surgical intervention. If WBC continues to decline and fever does not increase eventually may need to repeat ct Exam better than yesterday, may still need surgical intervention Patient and family agree with plan. Repeat labs in am. Patient is ambulating frequently for DVT prophylaxis. SCDs ordered, pt. not wearing them GI prophylaxis. Protonix Supervisory-Addendum Brief Verification & Attestation Participated in pt care: history, MDM, physical Personally performed: exam, history, MDM, supervision of care Care discussed with: Medical Student Procedures: n/a Results interpretation: Verified all documentation Verification and Attestation of Medical Student E/M Service A medical student performed and documented this service in my presence. I reviewed and verified all information documented by the medical student and made modifications to such information, when appropriate. I personally performed the physical exam and medical decision making. Yajaira Gerard, Jul 18, 2022,09:55 SUPA FERRELL Jul 18, 2022 07:19 YAJAIRA GERARD DO Jul 18, 2022 09:55
[2022-07-18 07:28] VITALS: BP 136/83
[2022-07-18 08:55] VITALS: BP 136/83
--- NOTE | 2022-07-18 08:58 | Consultation-Cardiology ---
HPI-Cardiology Cardiology Consultation Date of Consultation 07/18/22 Date of Admission Time Seen by Provider: 08:55 Indication: Atrial fibrillation HPI 56-year-old gentleman with history of paroxysmal atrial fibrillation, had failed ablation in the past, maintained on flecainide and oral anticoagulation. Started to have abdominal pain, left lower quadrant pain for the past week, thought initially was secondary to constipation, was diagnosed with diverticulitis and possible perforation. Currently feeling somewhat better. Denied any active chest pain, no shortness of breath. No further episodes of palpitation. Home Medications & Allergies Allergies: Coded Allergies: No Known Drug Allergies (Unverified , 07/16/22) Home Medication List Reviewed: Yes [id number] Hx Patient Social History Marital Status: Employed/Student: employed Smoking Status: Never a Smoker Have you traveled recently?: No Alcohol Use?: No Substance type: Caffeine, Nicotine Past Medical History Discussed below Family Medical History Significant Family History: No Pertinent Family Hx Review of Systems-General Review of Systems Constitutional: No chills; fever EENTM: No blurred vision, No double vision, No vision loss, No hoarseness, No throat pain Respiratory: see HPI; No cough, No dyspnea on exertion, No hemoptysis, No orthopnea, No phlegm, No short of breath, No stridor, No wheezing, No other Cardiovascular: see HPI; No chest pain, No edema, No Hx of Intervention, No palpitations, No syncope, No vascular heart diseas, No other Gastrointestinal: abdominal pain (LLQ); No diarrhea, No nausea, No vomiting Genitourinary: No dysuria, No frequency, No hematuria Musculoskeletal: No back pain, No joint pain Skin: No change in color, No lesions, No lumps, No rash Psychiatric/Neurological: Denies Anxiety, Denies Depressed, Denies Headache All Other Systems Reviewed Negative Unless Noted: Yes (Negative excepted noted.) Reviewed Test Results Reviewed Test Results Lab Laboratory Tests Test 07/18/22 05:30 Range/Units White Blood Count 16.4 H 4.3-11.0 10^3/uL Red Blood Count 3.95 L 4.30-5.52 10^6/uL Hemoglobin 12.9 L 13.3-17.7 g/dL Hematocrit 36 L 40-54 % Mean Corpuscular Volume 92 80-99 fL Mean Corpuscular Hemoglobin 33 25-34 pg Mean Corpuscular Hemoglobin Concent 35 32-36 g/dL Red Cell Distribution Width 12.7 10.0-14.5 % Platelet Count 227 130-400 10^3/uL Mean Platelet Volume 9.8 9.0-12.2 fL Sodium Level 137 135-145 MMOL/L Potassium Level 3.3 L 3.6-5.0 MMOL/L Chloride Level 107 98-107 MMOL/L Carbon Dioxide Level 20 L 21-32 MMOL/L Anion Gap 10 5-14 MMOL/L Blood Urea Nitrogen 13 7-18 MG/DL Creatinine 0.89 0.60-1.30 MG/DL Estimat Glomerular Filtration Rate 102 BUN/Creatinine Ratio 15 Glucose Level 93 70-105 MG/DL Calcium Level 8.2 L 8.5-10.1 MG/DL Magnesium Level 1.8 1.6-2.4 MG/DL Physical Exam Physical Exam Vital Signs Vital Signs - First Documented 07/16/22 16:38 Temp 38.0 Pulse 89 Resp 22 B/P (MAP) 122/82 (95) Pulse Ox 95 O2 Delivery Room Air Capillary Refill : Less Than 3 Seconds Height, Weight, BMI Height: '" Weight: lbs. oz. kg; 34.16 BMI Method: General Appearance: No Apparent Distress, Obese Eyes: Bilateral Eye Normal Inspection, Bilateral Eye PERRL, Bilateral Eye EOMI HEENT: PERRL/EOMI, Moist Mucous Membranes Neck: Normal Inspection, Non Tender, Supple Respiratory: Lungs Clear, Normal Breath Sounds, No Accessory Muscle Use, No Respiratory Distress Cardiovascular: Regular Rate, Rhythm, No JVD Gastrointestinal: No Guarding, No Rebound; Tenderness (LLQ) Back: Normal Inspection, No CVA Tenderness, No Vertebral Tenderness Extremity: Non Tender, No Calf Tenderness Neurologic/Psychiatric: Alert, Oriented x3 Skin: Normal Color, Warm/Dry Lymphatic: No Adenopathy A/P-Cardiology Admission Diagnosis Acute diverticulitis Paroxysmal atrial fibrillation Hypertension Assessment/Plan Acute diverticulitis with questionable perforation Managed by Dr. Gerard Paroxysmal atrial fibrillation, history of A-fib ablation in the past that has failed Maintained on flecainide and oral anticoagulation We will restart flecainide and hold off on the oral anticoagulation for now Place patient on telemetry and monitor closely History of cardiac catheterization patient reported that it was normal done about 4 years ago, had yearly stress test and has been normal and follows with a records tech in [place] Hypertension, monitor blood pressure BMI 34 LATOYA VELASQUEZ MD Jul 18, 2022 08:58
[2022-07-18] MEDS: PANTOPRAZOLE 40 MG (PROTONIX) VIAL IV SCH (10:10)
[2022-07-18 11:33] VITALS: BP 134/80
[2022-07-18] MEDS: cefTRIAXone 2,000 MG/NS 50 ML IVPB IV SCH ×2 (14:14)
[2022-07-18] MEDS ORDERED: ACETAMINOPHEN 325 MG TABLET PO PRN (14:15)
[2022-07-18] MEDS ORDERED: ACETAMINOPHEN 500 MG TAB (TYLENOL) PO PRN (14:15)
[2022-07-18 15:44] VITALS: BP 143/59
[2022-07-18] MEDS: FLECAINIDE 100 MG (TAMBOCOR) TAB PO SCH (18:18)
[2022-07-18 19:25] VITALS: BP 149/78
[2022-07-19] VITALS (13 sets, daily range): BP systolic 110–146; BP diastolic 62–86
[2022-07-19] MEDS: LACTATED RINGERS 1,000 ML IV SCH ×4 (00:28→20:50)
[2022-07-19 05:58] LABS: HEMATOCRIT 39 % (40-54); HEMOGLOBIN 13.8 g/dL (13.3-17.7); MEAN CORPUSCULAR HEMOGLOBIN 32 pg (25-34); MEAN CORPUSCULAR HGB CONC 35 g/dL (32-36); MEAN CORPUSCULAR VOLUME 92 fL (80-99); MEAN PLATELET VOLUME 9.8 fL (9.0-12.2); PLATELET COUNT 265 10^3/uL (130-400); WHITE BLOOD COUNT 17.9 10^3/uL (4.3-11.0)
[2022-07-19] MEDS: metroNIDAZOLE 500MG/100ML IVPB 100 ML IV SCH ×2 (06:03→18:16)
[2022-07-19 06:20] LABS: CALCIUM 8.4 MG/DL (8.5-10.1); CREATININE SERUM 0.87 MG/DL (0.60-1.30); MAGNESIUM 1.8 MG/DL (1.6-2.4); POTASSIUM 3.6 MMOL/L (3.6-5.0)
--- NOTE | 2022-07-19 07:37 | Progress Note - Surgery ---
SUPA FERRELL 07/19/22 0737: Subjective Date Seen by a Provider: Jul 19, 2022 Time Seen by a Provider: 06:50 Subjective/Events-last exam Patient claims he is feeling a little bit worse today. He has been ambulating less because whenever he gets up to walk the pain increases and he feels very t ired. Pain at rest is rated a 5/10 and is constant. He has only had Tylenol for his pain, I reminded him that he has pain medication ordered if he needs it, he said he does not want to use it unless he absolutely has to. WBC increased to 17.9 from 16.4 yesterday. He had 6 BMs through the night that were watery. He is voiding normally. Review of Systems General: No Chills, No Night Sweats HEENT: Head Aches; No Visual Changes, No Dysphasia Pulmonary: No Dyspnea, No Cough Cardiovascular: No: Chest Pain, Palpitations Gastrointestinal: Abdominal Pain (llq), Diarrhea; No: Nausea, Vomiting, Melena, Hematochezia Genitourinary: No Dysuria, No Frequency, No Hematuria Musculoskeletal: No: neck pain, shoulder pain, back pain Neurological: No: Weakness, Numbness, Confusion Focused Exam Lactate Level 07/16/22 17:00: Lactic Acid Level 1.01 Objective Exam Vital Signs Date Time Temp Pulse Resp B/P (MAP) Pulse Ox O2 Delivery O2 Flow Rate FiO2 07/19/22 07:15 36.4 77 18 142/75 (97) 95 Room Air 07/19/22 04:00 37.5 83 18 124/65 (84) 94 Room Air 07/19/22 01:00 70 07/19/22 00:28 37.5 73 18 146/84 (104) 95 Room Air 07/18/22 19:56 Room Air 07/18/22 19:25 37.8 80 18 149/78 (101) 94 Room Air 07/18/22 19:00 82 07/18/22 15:44 36.6 80 20 143/59 (87) 94 Room Air 07/18/22 12:50 78 07/18/22 11:33 38.1 86 18 134/80 (98) 95 Room Air 07/18/22 08:55 37.7 80 18 136/83 (100) 93 Room Air 07/18/22 08:00 93 Room Air I & O 07/19/22 07:00 Intake Total 10 ml Balance 10 ml Capillary Refill : Less Than 3 Seconds General Appearance: Mild Distress, Obese HEENT: PERRL/EOMI, Moist Mucous Membranes Neck: Non Tender, Supple Respiratory: Lungs Clear, Normal Breath Sounds, No Accessory Muscle Use, No Respiratory Distress Cardiovascular: Regular Rate, Rhythm, No Murmur Gastrointestinal: soft; No guarding, No rebound; tenderness (LLQ, worse than yesterday) Extremity: Non Tender, No Calf Tenderness Neurologic/Psychiatric: Alert, Oriented x3 Skin: Normal Color, Warm/Dry Lymphatic: No Adenopathy Results Lab Laboratory Tests 07/19/22 05:04: White Blood Count 17.9H, Red Blood Count 4.29L, Hemoglobin 13.8, Hematocrit 39L, Mean Corpuscular Volume 92, Mean Corpuscular Hemoglobin 32, Mean Corpuscular Hemoglobin Concent 35, Red Cell Distribution Width 12.8, Platelet Count 265, Mean Platelet Volume 9.8, Sodium Level 138, Potassium Level 3.6, Chloride Level 105, Carbon Dioxide Level 19L, Anion Gap 14, Blood Urea Nitrogen 13, Creatinine 0.87, Estimat Glomerular Filtration Rate 103, BUN/Creatinine Ratio 15, Glucose Level 86, Calcium Level 8.4L, Magnesium Level 1.8 Microbiology 07/16/22 Blood Culture - Preliminary, Resulted No growth 07/16/22 Urine Culture - Final, Complete NO GROWTH Assessment/Plan Assessment/Plan Assessment/Plan perforated diverticulitis LLQ Abdominal pain- improved from yesterday Leukocytosis- 17.9 today from 16.4 yesterday History of AFib Half-Way use of anticoagulant Return to NPO IV fluids @125 Rocephin, flagyl Until today, Pain has been well controlled, he required his first dose of morphine since his admission Pt. is currently afebrile, could be due to tylenol Hold xeralto Consulted medicine and cardiology, pt. was approved to restart flecainide, still holding xeralto Currently on exam he has tenderness to llq that is worse than yesterday. Will try conservative measures, but also this will allow anticoagulant to get out of his system making it safer if we do need to do surgical intervention. With increasing WBC and increasing pain, will repeat CT this morning to compare with admission Exam worse than yesterday, may still need surgical intervention Patient and family agree with plan, getting more restless with waiting Repeat labs in am. Patient is ambulating frequently for DVT prophylaxis. SCDs ordered, pt. not wearing them GI prophylaxis. Protonix YAJAIRA GERARD DO 07/19/22 1128: Subjective Subjective/Events-last exam Patietn with worse pain today. Not feeling well, doesn't want to move. He states he is wanting it fixed. WBC up to 16.9. Denies n/v sweats chill shortness of breath or chest pain at this time. Objective Exam General Appearance: Mild Distress, Obese HEENT: PERRL/EOMI, Moist Mucous Membranes Neck: Non Tender, Supple Respiratory: Chest Non Tender, No Accessory Muscle Use, No Respiratory Distress Cardiovascular: Regular Rate, Rhythm, No JVD Gastrointestinal: guarding (llq), tenderness (LLQ, with focal peritonitis) Extremity: Non Tender, No Calf Tenderness Neurologic/Psychiatric: Alert, Oriented x3 Skin: Normal Color, Warm/Dry Lymphatic: No Adenopathy Assessment/Plan Assessment/Plan Assessment/Plan perforated diverticulitis LLQ Abdominal pain- improved from yesterday Leukocytosis- 17.9 today from 16.4 yesterday History of AFib Half-Way use of anticoagulant Return to NPO IV fluids @125 Rocephin, flagyl Until today, Pain has been well controlled, he required his first dose of morphine since his admission now with focalized peritonitis Pt. is currently afebrile, could be due to tylenol Hold xeralto Consulted medicine and cardiology, pt. was approved to restart flecainide, still holding xeralto Currently on exam he has tenderness to llq that is worse than yesterday with focalized peritonitis. We discussed risks and benefits of laparoscopic hand assisted colon resection po ssible open with end colostomy all other indicated procedures. With increasing WBC and increasing pain, will repeat CT this morning to compare with admission Exam worsening and wbc increasing. He wishes to proceed with surgical intervention. Patient and family agree with plan, getting more restless with waiting I reviewed ct still with large phlegmon secondary to perf diverticulitis. To or Repeat labs in am. Patient is ambulating frequently for DVT prophylaxis. SCDs ordered, pt. not wearing them GI prophylaxis. Protonix Supervisory-Addendum Brief Verification & Attestation Participated in pt care: history, MDM, physical Personally performed: exam, history, MDM, supervision of care Care discussed with: Medical Student Procedures: n/a Results interpretation: Verified all documentation Verification and Attestation of Medical Student E/M Service A medical student performed and documented this service in my presence. I reviewed and verified all information documented by the medical student and made modifications to such information, when appropriate. I personally performed the physical exam and medical decision making. Yajaira Gerard, Jul 19, 2022,11:28 SUPA FERRELL Jul 19, 2022 07:37 YAJAIRA GERARD DO Jul 19, 2022 11:28
[2022-07-19] MEDS: PANTOPRAZOLE 40 MG (PROTONIX) VIAL IV SCH (08:54)
[2022-07-19] MEDS: FLECAINIDE 100 MG (TAMBOCOR) TAB PO SCH ×2 (08:54→18:14)
[2022-07-19] MEDS: morphine INJ 4 MG/ML 1 ML (VIAL/SYRINGE) IVP PRN ×4 (08:54→20:49)
[2022-07-19] MEDS ORDERED: IOHEXOL 350 MG/ML 100 ML (OMNIPAQUE 350) VIAL IV ONE (10:00)
[2022-07-19] MEDS ORDERED: NS 100 ML (IVPB) BAG IV ONE (10:00)
[2022-07-19] MEDS ORDERED: HOLD METFORMIN - RECEIVED CONTRAST 20 ML VIAL IV SCH (10:00)
--- NOTE | 2022-07-19 10:12 | Cardiology Progress Note ---
Subjective Date Seen by Provider: Jul 19, 2022 Time Seen by Provider: 10:11 Subjective/Events-last exam Patient was seen at bedside, still having abdominal pain. Review of Systems General: No Chills, No Night Sweats, No Fatigue, No Malaise, No Appetite, No Other HEENT: No Head Aches, No Visual Changes, No Eye Pain, No Ear Pain, No Dysphasia, No Sinus Congestion, No Post Nasal Drip, No Sore Throat, No Other Pulmonary: No Dyspnea, No Cough, No Pleuritic Chest Pain, No Other Cardiovascular: No: Chest Pain, Palpitations, Orthopnea, Paroxysmal Noc. Dyspnea, Edema, Lt Headedness, Other Focused Exam Lactate Level 07/16/22 17:00: Lactic Acid Level 1.01 Objective-Cardiology Exam Last Set of Vital Signs Vital Signs 07/19/22 07/19/22 07:15 08:00 Temp 36.4 Pulse 77 Resp 18 B/P (MAP) 142/75 (97) Pulse Ox 95 O2 Delivery Room Air I&O Intake and Output 07/19/22 00:00 Intake Total 1010 ml Balance 1010 ml Intake Oral 10 ml IV Total 1000 ml # Voids 8 # Bowel Movements 6 General: Alert, Oriented X3, Cooperative HEENT: Atraumatic, PERRLA Neck: Supple, No JVD, No Thyromegaly Lungs: Clear to Auscultation, Normal Air Movement Heart: Regular Rate, Normal S1, Normal S2, No Murmurs Abdomen: Soft, No Hepatosplenomegaly, No Masses, Other (Distended and tender abdomen) Extremities: No Clubbing, No Cyanosis, No Edema, Normal Pulses, No Tenderness/Swelling Skin: No Rashes, No Breakdown, No Significant Lesion Neuro: Normal Gait, Normal Speech, Strength at 5/5 X4 Ext, Normal Tone, Sensation Intact Psych/Mental Status: Mental Status NL, Mood NL Results Lab Laboratory Tests 07/19/22 05:04 A/P-Cardiology Admission Diagnosis Acute diverticulitis Paroxysmal atrial fibrillation Hypertension Assessment/Plan Acute diverticulitis with questionable perforation Managed by Dr. 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
--- NOTE | 2022-07-19 11:04 | Diagnostic Imaging Report ---
EXAMINATION: CT abdomen and pelvis with intravenous contrast. TECHNIQUE: Multiple contiguous axial images were obtained through the abdomen and pelvis after the uneventful administration of intravenous contrast. All CT scans use one or more of the following dose optimizing techniques: automated exposure control, MA and/or KvP adjustment based on patient size and exam type or iterative reconstruction. HISTORY: Follow-up diverticulitis. COMPARISON: 07/16/2022. FINDINGS: The heart is unremarkable. Dependent atelectasis is seen in the lung bases. The liver, spleen, pancreas, adrenal glands, and kidneys have a normal appearance. The gallbladder is mildly distended. There is no pathologically enlarged mesenteric or retroperitoneal adenopathy. Findings of acute diverticulitis involving the sigmoid colon is again seen with fluid and air in the mesentery adjacent to the sigmoid colon. The free air has decreased since the prior exam. No development of a loculated fluid collection. No associated bowel obstruction. No acute osseous abnormalities. Ureters and bladder are grossly normal. There is no free air, loculated collection, or adenopathy in the pelvis. IMPRESSION: 1. Improving perforated diverticulitis involving the sigmoid colon. No development of abscess. No bowel obstruction. Recommend continued follow-up, as indicated. Dictated by: Dictated on workstation # [id number]
[2022-07-19] MEDS ORDERED: LIDOCAINE PF 2% 5 ML (XYLOCAINE) VIAL ONE (11:47)
[2022-07-19] MEDS ORDERED: fentaNYL INJ 100 MCG/2 ML AMP ONE ×3 (11:47→14:50)
[2022-07-19] MEDS ORDERED: MIDAZOLAM 2 MG/2 ML (VERSED) VIAL ONE (11:47)
[2022-07-19] MEDS ORDERED: ROCURONIUM 50 MG/5 ML (ZEMURON) VIAL IV ONE ×2 (11:47→13:02)
[2022-07-19] MEDS ORDERED: proPOfol 200 MG/20 ML (DIPRIVAN) VIAL IV ONE (11:47)
[2022-07-19] MEDS: LACTATED RINGERS 1,000 ML IV PRN ×4 (12:10→15:09)
[2022-07-19] MEDS ORDERED: LIDOCAINE/EPI 1%-1:100,000 (XYLOCAINE) 20ML ONE (12:41)
[2022-07-19] MEDS ORDERED: ONDANSETRON 4 MG/2 ML (SDV) Z0FRAN ONE (13:02)
[2022-07-19] MEDS ORDERED: SUGAMMADEX 500 MG/5 ML VIAL (BRIDION) IV ONE (13:43)
[2022-07-19] MEDS ORDERED: BUPIVACAINE 0.5% 30 ML (SENSORCAINE) VIAL ONE (14:18)
[2022-07-19] MEDS ORDERED: SEVOFLURANE (ULTANE) 15 ML INHAL SOLN ONE (14:24)
--- NOTE | 2022-07-19 15:01 | Progress Note-Post Operative ---
Post-Operative Progess Note Surgeon (s)/Mixer Operator Tablets (s) Surgeon YAJAIRA PAGE DO Mixer Operator Tablets: [place] Pre-Operative Diagnosis perforated diverticulitis Post-Operative Diagnosis same Procedure & Operative Findings Date of Procedure 07/19/22 Procedure Performed/Findings Lap to open [place] with mobilization of splenic flexure Anesthesia Type general Estimated Blood Loss Estimated blood loss (mL): 200 Specimens/Packing Specimens Removed sigmoid colon and phlegmon YAJAIRA PAGE DO Jul 19, 2022 15:01
[2022-07-19] MEDS: cefTRIAXone 2,000 MG/NS 50 ML IVPB IV SCH ×2 (16:15)
[2022-07-20] MEDS: morphine INJ 4 MG/ML 1 ML (VIAL/SYRINGE) IVP PRN ×7 (00:14→21:03)
[2022-07-20 00:15] VITALS: BP 128/81
--- NOTE | 2022-07-20 02:17 | OPERATIVE REPORT ---
DATE OF SERVICE: 07/19/2022 PREOPERATIVE DIAGNOSIS: Perforated diverticulitis. POSTOPERATIVE DIAGNOSIS: Perforated diverticulitis. PROCEDURES: Laparoscopic to open [place] procedure with mobilization of splenic flexure. SURGEON: Srikanth Gerard DO ANESTHESIA: General. ESTIMATED BLOOD LOSS: 300 mL. FERRY OPERATOR: Kelby Izquierdo DO, assisted in retraction, dissection, and closure. INDICATIONS FOR SURGERY: The patient is a 56-year-old male who was admitted with a perforated diverticulitis. Tried conservative measures, was feeling better, but then had worsening change was more peritoneal in the left lateral quadrant today on exam. The patient is having pain. We reviewed CT scan, which showed large phlegmonous mass secondary to perforated diverticulitis. With physical exam and increased white blood cell count, we discussed options and the patient wishes to proceed with surgical intervention. He understands risks and benefits along with family and wishes to proceed. Consent was signed in chart. DESCRIPTION OF PROCEDURE: The patient was taken to the operating suite where he was prepped and draped in sterile fashion. Timeout was performed. Midline incision was made for a hand port. Cautery was used to dissect down through subcutaneous tissues and the fascia was then opened. A small hernia defect was present at the umbilicus. A hand port was inserted in this area. A hand was placed within the abdomen, could feel a large phlegmonous mass in the left lower quadrant. A 12 mm port was placed in the right lower quadrant under direct visualization of laparoscope and a 5 mm trocar was placed in the left upper quadrant. Trying to begin this carefully, we find a good area distal to the phlegmonous mass, but there was also purulent material around within the abdomen due to abscess. Distal to this area about the rectosigmoid junction, the colon was then dissected around bluntly. A IRMA stapler was fired across this area. We began going through the mesentery with LigaSure taking this proximally. Also began using the Bovie in order to dissect the left white line of Toldt trying to mobilize the colon to a more midline structure. The sigmoid colon was extremely large with significant phlegmon, making it extremely difficult to see planes. We went proximal and mobilized the white line of Toldt all the way up to the area that was noninflamed proximal, this area was dissected around and a IRMA stapler was fired across this as well. This was then altered. At this time, we could not get the sigmoid and phlegmon mobilized due to significant adherence and so at this point, we decided to proceed open. We continued to use the LigaSure to divide the mesentery and then also continued to both bluntly cauterize and LigaSure, trying to free up the phlegmon and achieve hemostasis. Once this was performed, the specimen was removed. Copious amounts of irrigation was used to irrigate the abdomen. The left colon had to be mobilized more for creation of ileostomy and had even take down the splenic flexure in order to have enough length for the colostomy creation. After this was adequately dissected, again more irrigation was used to irrigate the abdomen. A #19 [place] drain was then placed in the pelvis and brought out through the 12 mm trocar site. The skin was then cut lateral to the umbilicus for a colostomy formation. Subcutaneous tissues were then divided. The fascia was then scored in a cruciate fashion. The muscle was then bluntly divided and the posterior sheath was then opened. Two fingers were used to dilate the opening and a [place] was inserted and grabbed the end of the distal left colon. This was then brought up through the colostomy site that was created and left for creation of the colostomy later. Again, the abdomen was then irrigated with copious amounts of irrigation. The fascia was then closed using 1-0 looped PDS. The wound was then covered and the colostomy was then brooked with 3-0 Vicryl sutures and then the midline wound was then packed using Kerlix and Betadine. Sterile bandages were applied. The patient tolerated the procedure well without any complications, taken to recovery room in stable condition. Job ID: [id number] DocumentID: [id number] Dictated Date: 07/19/2022 21:32:14 Mission Coordinator Date: 07/20/2022 02:16:00 Dictated By: DO MELINDA MAYER
[2022-07-20 03:45] VITALS: BP 115/76
[2022-07-20 05:49] LABS: HEMATOCRIT 40 % (40-54); MEAN CORPUSCULAR HEMOGLOBIN 32 pg (25-34); MEAN CORPUSCULAR HGB CONC 35 g/dL (32-36); MEAN CORPUSCULAR VOLUME 93 fL (80-99); MEAN PLATELET VOLUME 9.8 fL (9.0-12.2); PLATELET COUNT 277 10^3/uL (130-400); WHITE BLOOD COUNT 23.5 10^3/uL (4.3-11.0)
[2022-07-20 06:22] LABS: CALCIUM 8.3 MG/DL (8.5-10.1); CREATININE SERUM 0.84 MG/DL (0.60-1.30); MAGNESIUM 1.9 MG/DL (1.6-2.4)
[2022-07-20] MEDS: LACTATED RINGERS 1,000 ML IV SCH ×3 (06:27→17:34)
[2022-07-20] MEDS: metroNIDAZOLE 500MG/100ML IVPB 100 ML IV SCH ×2 (06:28→18:06)
[2022-07-20 07:45] VITALS: BP 122/76
[2022-07-20] MEDS: FLECAINIDE 100 MG (TAMBOCOR) TAB PO SCH ×2 (08:06→18:07)
[2022-07-20] MEDS: PANTOPRAZOLE 40 MG (PROTONIX) VIAL IV SCH (08:06)
--- NOTE | 2022-07-20 09:10 | Cardiology Progress Note ---
Subjective Date Seen by Provider: Jul 20, 2022 Time Seen by Provider: 09:10 Subjective/Events-last exam Patient is laying down in bed, having abdominal pain. Objective-Cardiology Exam Last Set of Vital Signs Vital Signs 07/20/22 07/20/22 07:45 08:00 Temp 36.4 Pulse 87 Resp 20 B/P (MAP) 122/76 (91) Pulse Ox 93 O2 Delivery Nasal Cannula O2 Flow Rate 1.00 I&O Intake and Output 07/20/22 00:00 Intake Total 2100 ml Output Total 870 ml Balance 1230 ml Intake Oral 0 ml IV Total 2100 ml Output Urine Total 600 ml Drainage Total 270 ml # Voids 6 # Bowel Movements 3 General: Alert, Oriented X3, Cooperative HEENT: Atraumatic, PERRLA Neck: Supple, No JVD, No Thyromegaly Lungs: Clear to Auscultation, Normal Air Movement Heart: Regular Rate, Normal S1, Normal S2, No Murmurs Abdomen: Other (Colostomy bag) Extremities: No Clubbing, No Cyanosis, No Edema, Normal Pulses, No Tenderness/Swelling Skin: No Rashes, No Breakdown, No Significant Lesion Neuro: Normal Gait, Normal Speech, Strength at 5/5 X4 Ext, Normal Tone, Sensation Intact Psych/Mental Status: Mental Status NL, Mood NL Results Lab Laboratory Tests 07/20/22 05:30 A/P-Cardiology Admission Diagnosis Acute diverticulitis Paroxysmal atrial fibrillation Hypertension Assessment/Plan Acute diverticulitis with large bowel perforation Status post partial colectomy and colostomy bag Managed by Dr. 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
--- NOTE | 2022-07-20 09:23 | Anesthesia-General Post-Op ---
General Patient Condition Mental Status/LOC: Same as Preop Cardiovascular: Satisfactory Nausea/Vomiting: Absent Respiratory: Satisfactory Pain: Controlled Complications: Absent Post Op Complications Complications None Follow Up Care/Instructions Patient Instructions None needed. Anesthesia/Patient Condition Patient Condition Patient is doing well, no complaints, stable vital signs, no apparent adverse anesthesia problems. No complications reported per nursing. KIMMIE ROSALES CRNA Jul 20, 2022 09:23
--- NOTE | 2022-07-20 10:22 | Progress Note - Surgery ---
MARIELLERASHAD 07/20/22 1022: Subjective Date Seen by a Provider: Jul 20, 2022 Time Seen by a Provider: 09:15 Subjective/Events-last exam Pt being followed for perforated diverticulosis and is s/p lap to open Soumya c mobilization of splenic flexure Pt is sitting in bed comfortably. Family at bedside. Pt reports improvement of abd pain today, rating it a 3/10 at rest and a 5-6/10 when coughing. Pt non- tender to palpation of abd on exam, no peritoneal signs and has remained afebrile. Per nurse, midline open incision was saturated with dark brown-kim fluid this morning. Nurse reinforced bandage at bedside. Wound seems dry on inspection with dried dark brown fluid present on bandage. No erythema or purulent drainage noted. Colostomy patent, pink-purple, and having sangeous fluid output. EMMIE drain contains ~75cc of sangeous fluid, output ~445cc since placement yesterday afternoon. WBC increased from yesterday at 23.5 from 17.9, most likely reactive. Urine output appropriate at 0.88cc/kg/hr. Pt has no other complaints at this time. Pt denies CP, SOB, nausea, vomiting, and chills. Review of Systems General: No Chills, No Night Sweats HEENT: No Head Aches, No Eye Pain Pulmonary: No Dyspnea, No Cough Cardiovascular: No: Chest Pain, Orthopnea Gastrointestinal: Abdominal Pain (improved); No: Nausea, Vomiting Genitourinary: No Dysuria, No Hematuria Musculoskeletal: No: neck pain, shoulder pain Neurological: No: Weakness, Numbness Objective Exam Vital Signs Date Time Temp Pulse Resp B/P (MAP) Pulse Ox O2 Delivery O2 Flow Rate FiO2 07/20/22 08:00 93 Nasal Cannula 1.00 07/20/22 07:45 36.4 87 20 122/76 (91) 93 Nasal Cannula 1.00 07/20/22 07:04 88 07/20/22 06:23 Nasal Cannula 2.00 07/20/22 03:45 36.2 89 18 115/76 (89) 93 Nasal Cannula 2.00 07/20/22 01:00 97 07/20/22 00:15 36.5 88 18 128/81 (97) 94 Nasal Cannula 2.00 07/19/22 20:50 Nasal Cannula 2.00 07/19/22 19:43 35.6 87 18 125/78 (94) 96 Nasal Cannula 4.00 07/19/22 19:32 Nasal Cannula 4.00 07/19/22 19:00 87 07/19/22 16:14 35.2 85 18 120/77 (91) 94 Nasal Cannula 4.00 07/19/22 16:00 36.1 77 18 116/73 (87) 93 Nasal Cannula 4.00 4.00 07/19/22 15:53 Nasal Cannula 4.00 07/19/22 15:50 36.1 18 116/73 (87) 93 Nasal Cannula 4.00 07/19/22 15:45 Nasal Cannula 2.00 07/19/22 15:40 36.1 20 114/75 (88) 93 Nasal Cannula 2.00 07/19/22 15:30 OxyMask 4.00 07/19/22 15:30 21 119/72 (88) 92 OxyMask 2.00 07/19/22 15:20 18 118/73 (88) 93 OxyMask 4.00 07/19/22 15:15 OxyMask 6.00 07/19/22 15:10 24 110/70 (83) 94 OxyMask 6.00 07/19/22 15:01 OxyMask 6.00 07/19/22 15:01 36.2 20 122/62 (82) 95 OxyMask 6.00 07/19/22 12:47 77 07/19/22 11:20 36.7 73 18 139/86 (103) 95 Room Air I & O 07/20/22 07:00 Intake Total 2100 ml Output Total 1345 ml Balance 755 ml Capillary Refill : Less Than 3 Seconds General Appearance: No Apparent Distress, Obese HEENT: PERRL/EOMI, Moist Mucous Membranes Neck: Non Tender, Supple Respiratory: Chest Non Tender, Normal Breath Sounds, No Accessory Muscle Use, No Respiratory Distress Cardiovascular: Regular Rate, Rhythm, No Gallop, No Murmur Peripheral Pulses: 2+ Dorsalis Pedis (R), 2+ Left Dors-Pedis (L) Gastrointestinal: non tender, distended (minimal), other (open midline incision; dry with healing edge, no purulent drainage noted; EMMIE drain located RLQ with sangeous fluid present; Colostomy L quadrant, pink-purple, patent, and draining sangeous fluid) Extremity: Non Tender, No Calf Tenderness Neurologic/Psychiatric: Alert, Oriented x3 Skin: Normal Color, Warm/Dry Results Lab Laboratory Tests 07/20/22 05:30: White Blood Count 23.5H, Red Blood Count 4.32, Hemoglobin 14.0, Hematocrit 40, Mean Corpuscular Volume 93, Mean Corpuscular Hemoglobin 32, Mean Corpuscular Hemoglobin Concent 35, Red Cell Distribution Width 13.1, Platelet Count 277, Mean Platelet Volume 9.8, Sodium Level 140, Potassium Level 4.0, Chloride Level 108H, Carbon Dioxide Level 21, Anion Gap 11, Blood Urea Nitrogen 13, Creatinine 0.84, Estimat Glomerular Filtration Rate 104, BUN/Creatinine Ratio 15, Glucose Level 141H, Calcium Level 8.3L, Magnesium Level 1.9 Microbiology 07/16/22 Blood Culture - Preliminary, Resulted No growth 07/16/22 Urine Culture - Final, Complete NO GROWTH Assessment/Plan Assessment/Plan Assessment/Plan S/P lap to open Soumya c mobilization of splenic flexture with end colostomy perforated diverticulitis LLQ Abdominal pain- improved Leukocytosis- 23.5 today from 17.9 yesterday History of AFib [facility] use of anticoagulant WBC increased but likely reactive from surgery. Pt has no abd pain on exam, remains afebrile. No signs of purulent drainage or erythema of incisions, c olostomy is viable and having sangeous output. IV fluids @ 125mls Progress to Clears Continue IV Flagyl continue pain control prn Hold Xarelto DVT ppx: SCDS GI ppx: Protonix PEREZ IZQUIERDO DO 07/20/22 1329: Subjective Time Seen by a Provider: 11:29 Subjective/Events-last exam Pt seen and examined, states he is doing ok and tolerating ice chips. Review of Systems Pulmonary: No Dyspnea, No Cough Cardiovascular: No: Chest Pain, Orthopnea Gastrointestinal: Abdominal Pain (improved); No: Nausea, Vomiting Objective Exam General Appearance: No Apparent Distress, Obese HEENT: PERRL/EOMI, Moist Mucous Membranes Respiratory: Chest Non Tender, Lungs Clear, Normal Breath Sounds, No Accessory Muscle Use, No Respiratory Distress Cardiovascular: Regular Rate, Rhythm, No Murmur Gastrointestinal: non tender, distended (minimal), other (open midline incision; dry with healing edge, no purulent drainage noted; EMMIE drain located RLQ with serosanguinous fluid present; Colostomy L quadrant, pink-purple, patent, and draining sangeous fluid) Extremity: No Calf Tenderness Assessment/Plan Assessment/Plan Assessment/Plan S/P lap to open Soumya c mobilization of splenic flexture with end colostomy perforated diverticulitis LLQ Abdominal pain- improved Leukocytosis- 23.5 today from 17.9 yesterday History of AFib [facility] use of anticoagulant WBC increased but likely reactive from surgery. Pt has no abd pain on exam, remains afebrile. No signs of purulent drainage or erythema of incisions, colostomy is viable and having sangeous output. IV fluids @ 125mls Progress to Clears Continue IV Flagyl continue pain control prn Hold Xarelto DVT ppx: SCDS GI ppx: Protonix Supervisory-Addendum Brief Verification & Attestation Participated in pt care: history, MDM, physical Personally performed: exam, history, MDM, supervision of care Care discussed with: Medical Student Procedures: n/a Verification and Attestation of Medical Student E/M Service A medical student performed and documented this service. I then reviewed and verified all information documented by the medical student and made modifications to such information, when appropriate. I personally performed a physical exam, medical decision making and then discussed any differences between the notes and made revisions as necessary to create one note. Perez Izquierdo , 07/20/22 , 13:29 RASHAD PALOMARES Jul 20, 2022 10:22 PEREZ IZQUIERDO DO Jul 20, 2022 13:29
[2022-07-20 11:32] VITALS: BP 119/81
[2022-07-20] MEDS: cefTRIAXone 2,000 MG/NS 50 ML IVPB IV SCH ×2 (13:24)
[2022-07-20 16:05] VITALS: BP 121/78
[2022-07-20 20:11] VITALS: BP 137/84
[2022-07-21] VITALS (7 sets, daily range): BP systolic 113–136; BP diastolic 65–88
[2022-07-21] MEDS: LACTATED RINGERS 1,000 ML IV SCH ×3 (04:10→22:38)
[2022-07-21] MEDS: morphine INJ 4 MG/ML 1 ML (VIAL/SYRINGE) IVP PRN ×5 (04:11→22:45)
[2022-07-21 05:27] LABS: HEMATOCRIT 37 % (40-54); HEMOGLOBIN 13.1 g/dL (13.3-17.7); MEAN CORPUSCULAR HEMOGLOBIN 32 pg (25-34); MEAN CORPUSCULAR HGB CONC 35 g/dL (32-36); MEAN CORPUSCULAR VOLUME 92 fL (80-99); MEAN PLATELET VOLUME 9.4 fL (9.0-12.2); PLATELET COUNT 324 10^3/uL (130-400)
[2022-07-21 05:53] LABS: CREATININE SERUM 0.83 MG/DL (0.60-1.30); POTASSIUM 3.6 MMOL/L (3.6-5.0)
[2022-07-21] MEDS: FLECAINIDE 100 MG (TAMBOCOR) TAB PO SCH ×2 (09:06→18:47)
[2022-07-21] MEDS: PANTOPRAZOLE 40 MG (PROTONIX) VIAL IV SCH (09:06)
--- NOTE | 2022-07-21 09:29 | Cardiology Progress Note ---
Subjective Date Seen by Provider: Jul 21, 2022 Time Seen by Provider: 09:28 Subjective/Events-last exam Patient was seen at bedside, sitting comfortably, no new complain Still having abdominal discomfort Objective-Cardiology Exam Last Set of Vital Signs Vital Signs 07/20/22 07/21/22 08:00 07:43 Temp 36.5 Pulse 86 Resp 18 B/P (MAP) 136/88 (104) Pulse Ox 90 O2 Delivery Room Air O2 Flow Rate 1.00 I&O Intake and Output 07/21/22 00:00 Intake Total 500 ml Output Total 1250 ml Balance -750 ml Intake Oral 500 ml Output Urine Total 875 ml Stool Total 50 ml Drainage Total 325 ml # Voids 2 General: Alert, Oriented X3, Cooperative HEENT: Atraumatic, PERRLA Neck: Supple, No JVD, No Thyromegaly Lungs: Clear to Auscultation, Normal Air Movement Heart: Regular Rate, Normal S1, Normal S2, No Murmurs Abdomen: Other (Colostomy bag) Extremities: No Clubbing, No Cyanosis, No Edema, Normal Pulses, No Tenderne ss/Swelling Skin: No Rashes, No Breakdown, No Significant Lesion Neuro: Normal Speech, Strength at 5/5 X4 Ext, Normal Tone, Sensation Intact Psych/Mental Status: Mental Status NL, Mood NL Results Lab Laboratory Tests 07/21/22 05:18 A/P-Cardiology Admission Diagnosis Acute diverticulitis Paroxysmal atrial fibrillation Hypertension Assessment/Plan Acute diverticulitis with large bowel perforation Status post Soumya procedure with splenic flexure release, has colostomy bag Still having distended abdomen and abdominal discomfort. Paroxysmal atrial fibrillation, history of A-fib ablation in the past that has failed Maintained on flecainide and oral anticoagulation Flecainide was restarted. Maintained sinus rhythm. 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
--- NOTE | 2022-07-21 09:30 | Cardiology Progress Note ---
Subjective Date Seen by Provider: Jul 21, 2022 Time Seen by Provider: 09:25 Subjective/Events-last exam Patient was seen at bedside, sitting comfortably, no new complain Still having abdominal pain Review of Systems General: No Chills, No Night Sweats, No Fatigue, No Malaise, No Appetite, No Other HEENT: No Head Aches, No Visual Changes, No Eye Pain, No Ear Pain, No Dysphasia, No Sinus Congestion, No Post Nasal Drip, No Sore Throat, No Other Pulmonary: No Dyspnea, No Cough, No Pleuritic Chest Pain, No Other Cardiovascular: No: Chest Pain, Palpitations, Orthopnea, Paroxysmal Noc. Dyspnea, Edema, Lt Headedness, Other Objective-Cardiology Exam Last Set of Vital Signs Vital Signs 07/20/22 07/21/22 08:00 07:43 Temp 36.5 Pulse 86 Resp 18 B/P (MAP) 136/88 (104) Pulse Ox 90 O2 Delivery Room Air O2 Flow Rate 1.00 I&O Intake and Output 07/21/22 00:00 Intake Total 500 ml Output Total 1250 ml Balance -750 ml Intake Oral 500 ml Output Urine Total 875 ml Stool Total 50 ml Drainage Total 325 ml # Voids 2 General: Alert, Oriented X3, Cooperative HEENT: Atraumatic, PERRLA Neck: Supple, No JVD, No Thyromegaly Lungs: Clear to Auscultation, Normal Air Movement Heart: Regular Rate, Normal S1, Normal S2, No Murmurs Abdomen: Other (Colostomy bag) Extremities: No Clubbing, No Cyanosis, No Edema, Normal Pulses, No Tenderness/Swelling Skin: No Rashes, No Breakdown, No Significant Lesion Neuro: Normal Speech, Strength at 5/5 X4 Ext, Normal Tone, Sensation Intact Psych/Mental Status: Mental Status NL, Mood NL Results Lab Laboratory Tests 07/21/22 05:18 A/P-Cardiology Admission Diagnosis Acute diverticulitis Paroxysmal atrial fibrillation Hypertension Assessment/Plan Acute diverticulitis with large bowel perforation Status post [place] procedure with colostomy, splenic flexure release Paroxysmal atrial fibrillation, history of A-fib ablation in the past that has failed Maintained on flecainide and oral anticoagulation Maintained on flecainide History of cardiac catheterization patient reported that it was normal done about 4 years ago, had yearly stress test and has been normal and 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 BMI 34 LATOYA VELASQUEZ MD Jul 21, 2022 09:30
--- NOTE | 2022-07-21 13:41 | Progress Note - Surgery ---
Subjective Time Seen by a Provider: 12:03 Subjective/Events-last exam Pt seen and examined, sitting up in chair. He states pain is controlled and he tolerated sips of clears. Still no output in ostomy, urinating without difficulty. Review of Systems Pulmonary: No Dyspnea, No Cough Cardiovascular: No: Chest Pain, Palpitations Gastrointestinal: Abdominal Pain; No: Nausea, Vomiting Genitourinary: No Dysuria, No Frequency Objective Exam Vital Signs Date Time Temp Pulse Resp B/P (MAP) Pulse Ox O2 Delivery O2 Flow Rate FiO2 07/21/22 12:42 89 07/21/22 11:40 36.3 85 20 113/65 (81) 92 Room Air 07/21/22 08:00 Room Air 07/21/22 07:43 36.5 86 18 136/88 (104) 90 Room Air 07/21/22 07:00 88 07/21/22 04:13 36.6 94 16 131/74 (93) 95 Room Air 07/21/22 01:00 89 07/21/22 00:37 36.9 91 16 116/75 (89) 92 Room Air 07/20/22 20:11 36.9 94 18 137/84 (101) 92 Room Air 07/20/22 20:00 Room Air 07/20/22 19:00 95 07/20/22 16:05 36.4 91 20 121/78 (92) 92 Room Air I & O 07/21/22 07:00 Intake Total 500 ml Output Total 915 ml Balance -415 ml Capillary Refill : Less Than 3 Seconds General Appearance: No Apparent Distress, Obese HEENT: PERRL/EOMI, Moist Mucous Membranes Respiratory: Chest Non Tender, Lungs Clear, Normal Breath Sounds, No Accessory Muscle Use, No Respiratory Distress Cardiovascular: Regular Rate, Rhythm, No Murmur Peripheral Pulses: 2+ Dorsalis Pedis (R), 2+ Left Dors-Pedis (L) Gastrointestinal: soft, guarding, tenderness (mainly in midline), other (ostomy is pinkish purple, viable with no output yet. Looks about same as yesterday) Extremity: No Calf Tenderness Neurologic/Psychiatric: Alert, Oriented x3 Results Lab Laboratory Tests 07/21/22 05:18: White Blood Count 23.0H, Red Blood Count 4.05L, Hemoglobin 13.1L, Hematocrit 37L , Mean Corpuscular Volume 92, Mean Corpuscular Hemoglobin 32, Mean Corpuscular Hemoglobin Concent 35, Red Cell Distribution Width 13.2, Platelet Count 324, Mean Platelet Volume 9.4, Sodium Level 140, Potassium Level 3.6, Chloride Level 107, Carbon Dioxide Level 24, Anion Gap 9, Blood Urea Nitrogen 15, Creatinine 0.83, Estimat Glomerular Filtration Rate 104, BUN/Creatinine Ratio 18, Glucose Level 125H, Calcium Level 8.0L, Magnesium Level 2.0 Microbiology 07/16/22 Blood Culture - Preliminary, Resulted No growth 07/16/22 Urine Culture - Final, Complete NO GROWTH Assessment/Plan Assessment/Plan Assessment/Plan S/P Soumya c mobilization of splenic flexture and end colostomy History of AFib [facility] use of anticoagulant Progress to Clears, Continue IV Flagyl, continue pain control prn DVT ppx: SCDS, GI ppx: Protonix PEREZ BRUNO DO Jul 21, 2022 13:40
[2022-07-21] MEDS: cefTRIAXone 2,000 MG/NS 50 ML IVPB IV SCH ×2 (14:36)
[2022-07-22 04:01] VITALS: BP 136/76
[2022-07-22] MEDS: LACTATED RINGERS 1,000 ML IV SCH ×3 (05:39→16:09)
[2022-07-22] MEDS: morphine INJ 4 MG/ML 1 ML (VIAL/SYRINGE) IVP PRN ×5 (05:48→21:22)
[2022-07-22 05:58] LABS: HEMATOCRIT 35 % (40-54); HEMOGLOBIN 12.4 g/dL (13.3-17.7); MEAN CORPUSCULAR HEMOGLOBIN 33 pg (25-34); MEAN CORPUSCULAR HGB CONC 35 g/dL (32-36); MEAN CORPUSCULAR VOLUME 92 fL (80-99); PLATELET COUNT 329 10^3/uL (130-400); WHITE BLOOD COUNT 13.6 10^3/uL (4.3-11.0)
[2022-07-22 06:07] LABS: POTASSIUM 3.4 MMOL/L (3.6-5.0)
[2022-07-22 06:08] LABS: CALCIUM 7.6 MG/DL (8.5-10.1)
[2022-07-22 06:12] LABS: CREATININE SERUM 0.77 MG/DL (0.60-1.30)
[2022-07-22 06:14] LABS: MAGNESIUM 1.9 MG/DL (1.6-2.4)
[2022-07-22 07:11] VITALS: BP 139/80
--- NOTE | 2022-07-22 07:27 | Progress Note - Surgery ---
SUPA FERRELL 07/22/22 0727: Subjective Date Seen by a Provider: Jul 22, 2022 Time Seen by a Provider: 06:50 Subjective/Events-last exam Patient is resting in bed comfortably this morning. He received pain medication at 0600 and his pain is now rated a 2-3/10. He has not had any stool output from ostomy, his EMMIE drained 250ml of serosanguineous fluid overnight. He is getting up to move as much as he can, he thinks he can walk by himself with no problem, I encouraged him to wait and make sure he has someone to walk with him. He is voiding regularly with no bajwa. He has been on a clear diet for the past day and he tolerated it very well, he said he is ready to try moving forward. Main complaint today is that he is anxious about the pain when he gets his wound vac placed today. Review of Systems General: No Chills, No Night Sweats HEENT: No Head Aches, No Visual Changes, No Dysphasia, No Sore Throat Pulmonary: No Dyspnea, No Cough Cardiovascular: No: Chest Pain, Palpitations, Lt Headedness Gastrointestinal: Abdominal Pain (appropriately tender following surgery); No: Nausea, Vomiting Genitourinary: No Dysuria, No Frequency, No Hematuria Musculoskeletal: No: neck pain, shoulder pain, back pain Neurological: No: Weakness, Numbness, Confusion Objective Exam Vital Signs Date Time Temp Pulse Resp B/P (MAP) Pulse Ox O2 Delivery O2 Flow Rate FiO2 07/22/22 07:11 37.2 85 18 139/80 (99) 92 Room Air 07/22/22 04:01 36.5 86 16 136/76 (96) 93 Room Air 07/22/22 01:00 82 07/21/22 23:43 36.3 87 16 127/70 (89) 93 Room Air 07/21/22 20:59 93 Room Air 07/21/22 20:22 37.2 93 18 134/85 (101) 91 Room Air 07/21/22 19:00 95 07/21/22 16:35 36.9 87 18 128/81 (97) 91 Room Air 07/21/22 12:42 89 07/21/22 11:40 36.3 85 20 113/65 (81) 92 Room Air 07/21/22 08:00 Room Air 07/21/22 07:43 36.5 86 18 136/88 (104) 90 Room Air I & O 07/22/22 07:00 Intake Total 1020 ml Output Total 635 ml Balance 385 ml Capillary Refill : Less Than 3 Seconds General Appearance: No Apparent Distress, Obese HEENT: PERRL/EOMI, Moist Mucous Membranes Neck: Non Tender, Supple Respiratory: Lungs Clear, Normal Breath Sounds, No Accessory Muscle Use, No Respiratory Distress Cardiovascular: Regular Rate, Rhythm, No Murmur Peripheral Pulses: 2+ Dorsalis Pedis (R), 2+ Left Dors-Pedis (L) Gastrointestinal: soft, tenderness (mainly in midline, appropriate following surgery ), other (ostomy is pinkish purple, viable with no output yet, EMMIE draining SS fluid 250ml total overnight) Extremity: Non Tender, No Calf Tenderness Neurologic/Psychiatric: Alert, Oriented x3 Skin: Normal Color, Warm/Dry Lymphatic: No Adenopathy Results Lab Laboratory Tests 07/22/22 05:14: White Blood Count 13.6H, Red Blood Count 3.82L, Hemoglobin 12.4L, Hematocrit 35L , Mean Corpuscular Volume 92, Mean Corpuscular Hemoglobin 33, Mean Corpuscular Hemoglobin Concent 35, Red Cell Distribution Width 13.2, Platelet Count 329, Mean Platelet Volume 10.0, Sodium Level 138, Potassium Level 3.4L, Chloride Level 106, Carbon Dioxide Level 24, Anion Gap 8, Blood Urea Nitrogen 13, Creatinine 0.77, Estimat Glomerular Filtration Rate 106, BUN/Creatinine Ratio 17, Glucose Level 113H, Calcium Level 7.6L, Magnesium Level 1.9 Microbiology 07/16/22 Blood Culture - Final, Complete No growth 07/16/22 Urine Culture - Final, Complete NO GROWTH Assessment/Plan Assessment/Plan Assessment/Plan S/P lap to open Soumya c mobilization of splenic flexture with end colostomy due to perforated diverticulitis Abdominal pain- improved Leukocytosis- 13.6 today from 23 yesterday History of AFib Assisted use of anticoagulant WBC still elevated but much improved, continue to monitor Pain is well controlled with morphine, pt. is nervous about continuing to use Consider switching to oral pain medication following placement of wound vac IV fluids @ 125mls Tolerated clears well, advance to soft, encouraged pt. to take it very slow with diet and he is agreeable to this Continue IV abx Restart Xarelto DVT ppx: SCDS and ambulation GI ppx: Protonix YAJAIRA GERARD DO 07/22/22 1316: Subjective Subjective/Events-last exam Feeling well. Pain controlled. Has gas out colostomy. EMMIE serosang. No new complaints. Denies n/v fever sweats chills shortness of breath or chest pain. Objective Exam General Appearance: No Apparent Distress, Obese HEENT: PERRL/EOMI, Moist Mucous Membranes Neck: Non Tender, Supple Respiratory: Chest Non Tender, No Accessory Muscle Use, No Respiratory Distress Cardiovascular: Regular Rate, Rhythm, No JVD Gastrointestinal: soft, tenderness (mainly in midline, appropriate following surgery open midline, ), other (ostomy is pinkish purple, viable with no output yet except gas) Extremity: Non Tender, No Calf Tenderness Neurologic/Psychiatric: Alert, Oriented x3 Skin: Normal Color, Warm/Dry Lymphatic: No Adenopathy Assessment/Plan Assessment/Plan Assessment/Plan S/P lap to open Soumya c mobilization of splenic flexture with end colostomy due to perforated diverticulitis Abdominal pain- improved Leukocytosis- 13.6 today from yesterday History of AFib Assisted use of anticoagulant WBC still elevated but much improved, continue to monitor Pain is well controlled with morphine, pt. is nervous about continuing to use Consider switching to oral pain medication following placement of wound vac IV fluids @ 125mls Tolerated clears well, advance to soft, encouraged pt. to take it very slow with diet and he is agreeable to this Continue IV abx Restart Xarelto DVT ppx: SCDS and ambulation GI ppx: Protonix May restart anticoagulation. Supervisory-Addendum Brief Verification & Attestation Participated in pt care: history, MDM, physical Personally performed: exam, history, MDM, supervision of care Care discussed with: Medical Student Procedures: n/a Results interpretation: Verified all documentation Verification and Attestation of Medical Student E/M Service A medical student performed and documented this service in my presence. I reviewed and verified all information documented by the medical student and made modifications to such information, when appropriate. I personally performed the physical exam and medical decision making. Yajaira Gerard, Jul 22, 2022,13:15 SUPA FERRELL Jul 22, 2022 07:27 YAJAIRA GERARD DO Jul 22, 2022 13:16
[2022-07-22] MEDS: PANTOPRAZOLE 40 MG (PROTONIX) VIAL IV SCH (07:55)
[2022-07-22] MEDS: POTASSIUM CL 10MEQ/50ML IVPB 50 ML IV SCH ×2 (08:02→08:14)
[2022-07-22] MEDS: FLECAINIDE 100 MG (TAMBOCOR) TAB PO SCH ×2 (08:02→18:00)
[2022-07-22] MEDS: metroNIDAZOLE 500MG/100ML IVPB 100 ML IV SCH ×2 (08:14→16:10)
--- NOTE | 2022-07-22 08:52 | Cardiology Progress Note ---
Subjective Date Seen by Provider: Jul 22, 2022 Time Seen by Provider: 08:51 Subjective/Events-last exam Patient was seen at bedside, laying down comfortably, feeling better. No new complaint Review of Systems General: No Chills, No Night Sweats, No Fatigue, No Malaise, No Appetite, No Other HEENT: No Head Aches, No Visual Changes, No Eye Pain, No Ear Pain, No Dysph reny, No Sinus Congestion, No Post Nasal Drip, No Sore Throat, No Other Pulmonary: No Dyspnea, No Cough, No Pleuritic Chest Pain, No Other Cardiovascular: No: Chest Pain, Palpitations, Orthopnea, Paroxysmal Noc. Dyspnea, Edema, Lt Headedness, Other Objective-Cardiology Exam Last Set of Vital Signs Vital Signs 07/20/22 07/22/22 07/22/22 08:00 07:11 07:12 Temp 37.2 Pulse 84 Resp 18 B/P (MAP) 139/80 (99) Pulse Ox 92 O2 Delivery Room Air O2 Flow Rate 1.00 I&O Intake and Output 07/22/22 00:00 Intake Total 920 ml Output Total 510 ml Balance 410 ml Intake Oral 920 ml Stool Total 0 ml Drainage Total 510 ml # Voids 7 General: Alert, Oriented X3, Cooperative HEENT: Atraumatic, PERRLA Neck: Supple, No JVD, No Thyromegaly Lungs: Clear to Auscultation, Normal Air Movement Heart: Regular Rate, Normal S1, Normal S2, No Murmurs Abdomen: Other (Colostomy bag) Extremities: No Clubbing, No Cyanosis, No Edema, Normal Pulses, No Tendern ess/Swelling Skin: No Rashes, No Breakdown, No Significant Lesion Neuro: Normal Speech, Strength at 5/5 X4 Ext, Normal Tone, Sensation Intact Psych/Mental Status: Mental Status NL, Mood NL Results Lab Laboratory Tests 07/22/22 05:14 A/P-Cardiology Admission Diagnosis Acute diverticulitis Paroxysmal atrial fibrillation Hypertension Assessment/Plan Acute diverticulitis with large bowel perforation Status post Soumya procedure with splenic flexure release, has colostomy bag Feeling better today. Continue to monitor Hypokalemia, replace and monitor Paroxysmal atrial fibrillation, history of A-fib ablation in the past that has failed Maintained on flecainide and oral anticoagulation Flecainide was restarted. Maintained sinus rhythm. 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
[2022-07-22] MEDS ORDERED: POVIDONE (BETADINE) 10% SOLN 240 ML BTL TOP SCH (09:00)
[2022-07-22] MEDS ORDERED: HYPOCHLOROUS ACID/NaCl (VASHE) 250 ML IR PRN (10:00)
[2022-07-22 11:18] VITALS: BP 144/89
--- NOTE | 2022-07-22 12:48 | Wound Care Assessment ---
Wound Care Assessment Date Seen by Provider: Jul 22, 2022 Time Seen by Provider: 12:42 Chief Complaint Surgical wound abdomen HPI This pleasant 56 year old was admitted to the hospital with perforated diverticulitis. He underwent surgery on 07-19-22 with rosangela procedure with mobility of splenic flexure and colostomy. He has a midline incision with fascial closure that is currently packed with betadine soaked kerlix. He does have a h/o atrial fibrillation with chronic anticoagulation and is morbidly obese but has no other medical ailments. He is on Rocephin and Flagyl currently with improvements in leukocytosis. There are plans for outpatient wound vac care. [place] [facility]. Wound care nearest him either at [place] (I'm uncertain if they still have a clinic) or [facility] with Dr. Raoul Cadena. He should do well with wound vac therapy. Our nursing staff will work to arrange outpatient wound vac and follow up. Smoking Status: Never a Smoker Review of Systems General: Other (Obesity) Exam Vital Signs Date Time Temp Pulse Resp B/P (MAP) Pulse Ox O2 Delivery O2 Flow Rate FiO2 07/22/22 11:18 37.1 86 18 144/89 (107) 94 Room Air 07/20/22 08:00 1.00 Capillary Refill : Less Than 3 Seconds General Appearance: WD/WN, no apparent distress, obese HEENT: other (Normal hearing) Neck: full range of motion Respiratory: no respiratory distress, no accessory muscle use Gastrointestinal: other (New colostomy) Extremities: non-tender, normal inspection, no pedal edema Neurologic/Psychiatric: alert, normal mood/affect, oriented x 3 Skin Problem Location: other (midline abdomen (surgical wound)) Wound assessment: The epithelialization is none. There is no tunneling or undermining. Drainage is large and sero sanguinous. Granulation is none. Necrotic is none. Margins show epibole. Results Laboratory Tests 07/22/22 05:14: White Blood Count 13.6H, Red Blood Count 3.82L, Hemoglobin 12.4L, Hematocrit 35L , Mean Corpuscular Volume 92, Mean Corpuscular Hemoglobin 33, Mean Corpuscular Hemoglobin Concent 35, Red Cell Distribution Width 13.2, Platelet Count 329, Mean Platelet Volume 10.0, Sodium Level 138, Potassium Level 3.4L, Chloride Level 106, Carbon Dioxide Level 24, Anion Gap 8, Blood Urea Nitrogen 13, Creatinine 0.77, Estimat Glomerular Filtration Rate 106, BUN/Creatinine Ratio 17, Glucose Level 113H, Calcium Level 7.6L, Magnesium Level 1.9 Microbiology 07/16/22 Blood Culture - Final, Complete No growth 07/16/22 Urine Culture - Final, Complete NO GROWTH Assessment/Plan/Dx Assessment: 1. Midline surgical wound 2. Perforated diverticula 3. Atrial fibrillation with chronic anticoagulation 4. Morbid obesity Plan: 1. Agree with wound vac therapy for dressing changes 3 times weekly once arrange d. We are happy to see him here but home is 1.5 hours away and he will likely not qualify for home health services. As such, will work to arrange with wound care center nearer his home. 2. Defer to Surgery 3. Defer to PCP 4. Defer to PCP KARRIE ELLIOTT MD Jul 22, 2022 12:48
[2022-07-22] MEDS: cefTRIAXone INJ 2,000 MG in NS (IVPB) 50 ML IV SCH (13:40)
[2022-07-22 15:13] VITALS: BP 144/81
[2022-07-22] MEDS: RIVAROXABAN 20 MG TABLET (XARELTO) PO SCH (18:00)
[2022-07-22 19:00] VITALS: BP 149/95
[2022-07-22 23:27] VITALS: BP 143/77
[2022-07-23] MEDS: morphine INJ 4 MG/ML 1 ML (VIAL/SYRINGE) IVP PRN ×2 (00:05→05:15)
[2022-07-23 03:32] VITALS: BP 119/80
[2022-07-23 05:52] LABS: HEMATOCRIT 36 % (40-54); HEMOGLOBIN 12.3 g/dL (13.3-17.7); MEAN CORPUSCULAR HEMOGLOBIN 32 pg (25-34); MEAN CORPUSCULAR HGB CONC 35 g/dL (32-36); MEAN CORPUSCULAR VOLUME 92 fL (80-99); MEAN PLATELET VOLUME 9.4 fL (9.0-12.2); PLATELET COUNT 383 10^3/uL (130-400); WHITE BLOOD COUNT 12.5 10^3/uL (4.3-11.0)
--- NOTE | 2022-07-23 06:11 | Progress Note - Surgery ---
SUPA FERERLL 07/23/22 0611: Subjective Date Seen by a Provider: Jul 23, 2022 Time Seen by a Provider: 05:55 Subjective/Events-last exam Patient is feeling well today. His abdominal pain has slightly improved, rated 4-5, he had received pain medication this morning. He had a wound vac placed which he tolerated well. He has no stool output from ostomy yet. DHARMESH drained 100ml of serous fluid overnight. He is still ambulating with assistance, he is voiding normally. He informed me that he was told he would be going home on and he seemed agreeable to that plan. Review of Systems General: No Chills, No Night Sweats HEENT: No Head Aches, No Dysphasia, No Sore Throat Pulmonary: No Dyspnea, No Cough Cardiovascular: No: Chest Pain, Palpitations, Lt Headedness Gastrointestinal: Abdominal Pain; No: Nausea, Vomiting Genitourinary: No Dysuria, No Frequency Musculoskeletal: No: neck pain, shoulder pain, back pain Neurological: No: Change in speech, Confusion Objective Exam Vital Signs Date Time Temp Pulse Resp B/P (MAP) Pulse Ox O2 Delivery O2 Flow Rate FiO2 07/23/22 03:32 36.8 80 18 119/80 (93) 94 Room Air 0.00 0.00 07/23/22 01:23 79 07/22/22 23:27 36.7 78 18 143/77 (99) 96 Room Air 0.00 0.00 07/22/22 20:36 Room Air 07/22/22 20:00 Room Air 07/22/22 19:33 85 07/22/22 19:00 36.8 87 18 149/95 (113) 95 Room Air 07/22/22 15:13 37.0 68 19 144/81 (102) 96 Room Air 07/22/22 13:04 83 07/22/22 11:18 37.1 86 18 144/89 (107) 94 Room Air 07/22/22 08:00 Room Air 07/22/22 07:12 84 07/22/22 07:11 37.2 85 18 139/80 (99) 92 Room Air I & O 07/23/22 06:59 Intake Total 1275 ml Output Total 265 ml Balance 1010 ml Capillary Refill : Less Than 3 Seconds General Appearance: No Apparent Distress, Obese HEENT: PERRL/EOMI, Moist Mucous Membranes Neck: Non Tender, Supple Respiratory: Lungs Clear, Normal Breath Sounds, No Accessory Muscle Use, No Respiratory Distress Cardiovascular: Regular Rate, Rhythm, No JVD Peripheral Pulses: 2+ Dorsalis Pedis (R), 2+ Left Dors-Pedis (L) Gastrointestinal: soft, tenderness (mainly in midline, appropriate following surgery ), other (ostomy is pinkish purple, viable with no output yet except gas, midline incision covered with wound vac) Extremity: Non Tender, No Calf Tenderness Neurologic/Psychiatric: Alert, Oriented x3 Skin: Normal Color, Warm/Dry Lymphatic: No Adenopathy Results Lab Laboratory Tests 07/23/22 05:21: White Blood Count 12.5H, Red Blood Count 3.86L, Hemoglobin 12.3L, Hematocrit 36L , Mean Corpuscular Volume 92, Mean Corpuscular Hemoglobin 32, Mean Corpuscular Hemoglobin Concent 35, Red Cell Distribution Width 13.2, Platelet Count 383, Mean Platelet Volume 9.4 Microbiology 07/16/22 Blood Culture - Final, Complete No growth 07/16/22 Urine Culture - Final, Complete NO GROWTH Assessment/Plan Assessment/Plan Assessment/Plan S/P lap to open Soumya c mobilization of splenic flexture with end colostomy due to perforated diverticulitis Abdominal pain- improved Leukocytosis- 12.5 today from 13.6 yesterday History of AFib Intermediate use of anticoagulant WBC still elevated but much improved, continue to monitor Pain is well controlled with morphine, he thinks he could go without the morphine but he is still taking it to help him sleep Consider switching to oral pain medication now that wound vac placed IV fluids @ 125mls Tolerated clears well, advance to soft, encouraged pt. to take it very slow with diet and he is agreeable to this Continue IV abx Continue Xarelto DVT ppx: SCDS and ambulation GI ppx: Protonix YAJAIRA GERARD DO 07/23/222251: Subjective Subjective/Events-last exam Flatus through colostomy. Pain controlled. Wound vac placed yesterday. Tolerating diet. Dharmesh serous. No new complaints. Objective Exam General Appearance: No Apparent Distress, Obese HEENT: PERRL/EOMI, Moist Mucous Membranes Neck: Non Tender, Supple Respiratory: Chest Non Tender, No Accessory Muscle Use, No Respiratory Distress Cardiovascular: Regular Rate, Rhythm, No JVD Gastrointestinal: soft, tenderness (mainly in midline), other (ostomy is pink, viable with no output yet except gas, midline incision covered with wound vac) Extremity: Non Tender, No Calf Tenderness Neurologic/Psychiatric: Alert, Oriented x3 Skin: Normal Color, Warm/Dry Lymphatic: No Adenopathy Assessment/Plan Assessment/Plan Assessment/Plan S/P lap to open Soumya c mobilization of splenic flexture with end colostomy due to perforated diverticulitis Abdominal pain- improved Leukocytosis- 12.5 today from 13.6 yesterday History of AFib Intermediate use of anticoagulant WBC still elevated but much improved, continue to monitor Pain is well controlled with morphine, he thinks he could go without the morphine but he is still taking it to help him sleep, will add hydrocodone IV fluids heplock Tolerated clears well, advance to soft, encouraged pt. to take it very slow with diet and he is agreeable to this Continue IV abx Continue Xarelto DVT ppx: SCDS and ambulation GI ppx: Protonix Supervisory-Addendum Brief Verification & Attestation Participated in pt care: history, MDM, physical Personally performed: exam, history, MDM, supervision of care Care discussed with: Medical Student Procedures: n/a Results interpretation: Verified all documentation Verification and Attestation of Medical Student E/M Service A medical student performed and documented this service in my presence. I reviewed and verified all information documented by the medical student and made modifications to such information, when appropriate. I personally performed the physical exam and medical decision making. Yajaira Gerard, Jul 23, 2022,22:52 SUPA FERRELL Jul 23, 2022 06:11 YAJAIRA GERARD DO Jul 23, 2022 22:52
[2022-07-23 06:57] LABS: CALCIUM 7.7 MG/DL (8.5-10.1); CREATININE SERUM 0.72 MG/DL (0.60-1.30); MAGNESIUM 1.9 MG/DL (1.6-2.4); POTASSIUM 3.7 MMOL/L (3.6-5.0)
[2022-07-23 07:29] VITALS: BP 129/82
[2022-07-23] MEDS: FLECAINIDE 100 MG (TAMBOCOR) TAB PO SCH ×2 (08:01→17:49)
[2022-07-23] MEDS: PANTOPRAZOLE 40 MG (PROTONIX) VIAL IV SCH (08:01)
[2022-07-23] MEDS: metroNIDAZOLE 500MG/100ML IVPB 100 ML IV SCH ×3 (08:01→17:49)
--- NOTE | 2022-07-23 09:15 | Cardiology Progress Note ---
Subjective Date Seen by Provider: Jul 23, 2022 Time Seen by Provider: 09:15 Subjective/Events-last exam Patient was seen at bedside laying down comfortably, feeling better. No new complain Objective-Cardiology Exam Last Set of Vital Signs Vital Signs 07/23/22 07/23/22 03:32 07:29 Temp 36.5 Pulse 80 Resp 18 B/P (MAP) 129/82 (98) Pulse Ox 93 O2 Delivery Room Air O2 Flow Rate 0.00 0.00 I&O Intake and Output 07/22/22 23:59 Intake Total 1275 ml Output Total 430 ml Balance 845 ml Intake Oral 1275 ml Stool Total 10 ml Drainage Total 420 ml # Voids 5 General: Alert, Oriented X3, Cooperative HEENT: Atraumatic, PERRLA Neck: Supple, No JVD, No Thyromegaly Lungs: Clear to Auscultation, Normal Air Movement Heart: Regular Rate, Normal S1, Normal S2, No Murmurs Abdomen: Other (Colostomy bag) Extremities: No Clubbing, No Cyanosis, No Edema, Normal Pulses, No Tenderness/Swelling Skin: No Rashes, No Breakdown, No Significant Lesion Neuro: Normal Speech, Strength at 5/5 X4 Ext, Normal Tone, Sensation Intact Psych/Mental Status: Mental Status NL, Mood NL Results Lab Laboratory Tests 07/23/22 05:21 A/P-Cardiology Admission Diagnosis Acute diverticulitis Paroxysmal atrial fibrillation Hypertension Assessment/Plan Acute diverticulitis with large bowel perforation Status post Soumya procedure with splenic flexure release, has colostomy bag Feeling better today. Continue to monitor Hypokalemia, replace and monitor Paroxysmal atrial fibrillation, history of A-fib ablation in the past that has failed Maintained on flecainide and oral anticoagulation Flecainide was restarted. Maintained sinus rhythm. 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
[2022-07-23] MEDS: HYDROcodone/APAP 5 MG/325 MG (LORTAB) TAB PO PRN ×3 (09:29→21:20)
[2022-07-23 11:02] VITALS: BP 130/77
[2022-07-23] MEDS: cefTRIAXone INJ 2,000 MG in NS (IVPB) 50 ML IV SCH (13:43)
[2022-07-23] MEDS: LACTATED RINGERS 1,000 ML IV SCH ×2 (13:43)
[2022-07-23 16:29] VITALS: BP 127/74
[2022-07-23] MEDS: RIVAROXABAN 20 MG TABLET (XARELTO) PO SCH (17:49)
[2022-07-23 20:26] VITALS: BP 127/79
[2022-07-24] VITALS (7 sets, daily range): BP systolic 111–133; BP diastolic 74–83
[2022-07-24] MEDS: metroNIDAZOLE 500MG/100ML IVPB 100 ML IV SCH ×4 (00:06→23:53)
[2022-07-24] MEDS: HYDROcodone/APAP 5 MG/325 MG (LORTAB) TAB PO PRN ×3 (04:30→21:39)
[2022-07-24 05:47] LABS: HEMATOCRIT 35 % (40-54); HEMOGLOBIN 11.9 g/dL (13.3-17.7); MEAN CORPUSCULAR HEMOGLOBIN 32 pg (25-34); MEAN CORPUSCULAR HGB CONC 34 g/dL (32-36); MEAN CORPUSCULAR VOLUME 93 fL (80-99); MEAN PLATELET VOLUME 9.4 fL (9.0-12.2); PLATELET COUNT 460 10^3/uL (130-400); WHITE BLOOD COUNT 11.7 10^3/uL (4.3-11.0)
[2022-07-24 06:07] LABS: CALCIUM 7.9 MG/DL (8.5-10.1); CREATININE SERUM 0.73 MG/DL (0.60-1.30); MAGNESIUM 1.9 MG/DL (1.6-2.4); POTASSIUM 3.6 MMOL/L (3.6-5.0)
--- NOTE | 2022-07-24 07:22 | Progress Note - Surgery ---
SUPA FERRELL 07/24/22 0722: Subjective Date Seen by a Provider: Jul 24, 2022 Time Seen by a Provider: 07:25 Subjective/Events-last exam Patient says he is feeling well today. His pain is well controlled with hydrocodone, rated at a 3/10 maximum. He says he is really only taking the pain medicine so he can sleep better. He got ostomy and wound vac education yesterday and he has a good grasp on what needs to be done. He had stool output in his ostomy this morning around 0500 for the first time. He has 20ml of serous fluid from his christianne drain overnight. He is ambulating in the halls, has no problems voiding. He is anxious about going home tomorrow but ready to go. Review of Systems General: No Chills, No Night Sweats HEENT: No Head Aches, No Visual Changes, No Dysphasia Pulmonary: No Dyspnea, No Cough Cardiovascular: No: Chest Pain, Palpitations, Lt Headedness Gastrointestinal: Abdominal Pain (minimal, but still present); No: Nausea, Vomiting Genitourinary: No Dysuria, No Frequency Musculoskeletal: No: neck pain, shoulder pain, back pain Neurological: No: Weakness, Numbness, Confusion Objective Exam Vital Signs Date Time Temp Pulse Resp B/P (MAP) Pulse Ox O2 Delivery O2 Flow Rate FiO2 07/24/22 04:30 36.6 81 18 120/83 (95) 94 Room Air 07/24/22 00:00 36.6 79 18 121/82 (95) 93 Room Air 07/23/22 20:26 36.9 80 18 127/79 (95) Room Air 07/23/22 20:00 Room Air 07/23/22 16:29 36.7 78 18 127/74 (91) Room Air 07/23/22 11:02 36.5 86 18 130/77 (94) 94 Room Air 07/23/22 08:00 Room Air 07/23/22 07:29 36.5 80 18 129/82 (98) 93 Room Air l I & O 07/24/22 07:00 Intake Total 2805 ml Output Total 400 ml Balance 2405 ml Capillary Refill : Less Than 3 Seconds General Appearance: No Apparent Distress, Obese HEENT: PERRL/EOMI, Moist Mucous Membranes Neck: Non Tender, Supple Respiratory: No Accessory Muscle Use, No Respiratory Distress Cardiovascular: Regular Rate, Rhythm, No JVD Peripheral Pulses: 2+ Dorsalis Pedis (R), 2+ Left Dors-Pedis (L) Gastrointestinal: non tender, soft, other (ostomy is pink, viable with loose brown stool, midline incision covered with wound vac, minimal serous draininage from christianne) Extremity: Non Tender, No Calf Tenderness Neurologic/Psychiatric: Alert, Oriented x3 Skin: Normal Color, Warm/Dry Lymphatic: No Adenopathy Results Lab Laboratory Tests 07/24/22 05:11: White Blood Count 11.7H, Red Blood Count 3.77L, Hemoglobin 11.9L, Hematocrit 35L , Mean Corpuscular Volume 93, Mean Corpuscular Hemoglobin 32, Mean Corpuscular Hemoglobin Concent 34, Red Cell Distribution Width 13.1, Platelet Count 460H, Mean Platelet Volume 9.4, Sodium Level 137, Potassium Level 3.6, Chloride Level 106, Carbon Dioxide Level 22, Anion Gap 9, Blood Urea Nitrogen 7, Creatinine 0.73, Estimat Glomerular Filtration Rate 108, BUN/Creatinine Ratio 10, Glucose Level 95, Calcium Level 7.9L, Magnesium Level 1.9 Microbiology 07/16/22 Blood Culture - Final, Complete No growth 07/16/22 Urine Culture - Final, Complete NO GROWTH Assessment/Plan Assessment/Plan Assessment/Plan S/P lap to open Soumya c mobilization of splenic flexture with end colostomy due to perforated diverticulitis Abdominal pain- improved Leukocytosis- 11.7 today from 12.5 yesterday History of AFib Correction use of anticoagulant WBC still elevated but much improved, continue to monitor Pain control switched to hydrocodone yesterday still well controlled, 3/10 maximum, he thinks he could go without it at this point IV fluids heplock Tolerated clears well, now he has stool output will advance to pureed, encouraged pt. to take it very slow with diet and he is agreeable to this Continue IV abx Continue Xarelto Plan to discharge to home tomorrow DVT ppx: SCDS and ambulation GI ppx: Protonix YAJAIRA GERARD DO 07/24/22 1645: Subjective Subjective/Events-last exam Doing well. Colostomy functioning. Pain controlled. No new complaints. CHRISTIANNE serous. Wound vac in place. Denies n/v fever sweats chills shortness of breath or chest pain. Objective Exam General Appearance: No Apparent Distress, Obese HEENT: PERRL/EOMI, Moist Mucous Membranes Neck: Non Tender, Supple Respiratory: Chest Non Tender, No Accessory Muscle Use, No Respiratory Distress Cardiovascular: Regular Rate, Rhythm, No JVD Gastrointestinal: non tender, soft, other (ostomy is pink, viable with loose brown stool, midline incision covered with wound vac, minimal serous draininage from christianne) Extremity: Non Tender, No Calf Tenderness Neurologic/Psychiatric: Alert, Oriented x3 Skin: Normal Color, Warm/Dry Lymphatic: No Adenopathy Assessment/Plan Assessment/Plan Assessment/Plan S/P lap to open Soumya c mobilization of splenic flexture with end colostomy due to perforated diverticulitis Abdominal pain- improved Leukocytosis- 11.7 today from 12.5 yesterday History of AFib Correction use of anticoagulant WBC still elevated but much improved, continue to monitor Pain control switched to hydrocodone yesterday still well controlled, 3/10 maximum, he thinks he could go without it at this point IV fluids heplock Tolerated clears well, now he has stool output will advance to pureed, encouraged pt. to take it very slow with diet and he is agreeable to this Continue IV abx Continue Xarelto Plan to discharge to home tomorrow, awaiting approval of wound vac and setting up with wound care closer to his home. DVT ppx: SCDS and ambulation GI ppx: Protonix Supervisory-Addendum Brief Verification & Attestation Participated in pt care: history, MDM, physical Personally performed: exam, history, MDM, supervision of care Care discussed with: Medical Student Procedures: n/a Results interpretation: Verified all documentation Verification and Attestation of Medical Student E/M Service A medical student performed and documented this service in my presence. I reviewed and verified all information documented by the medical student and made modifications to such information, when appropriate. I personally performed the physical exam and medical decision making. Yajaira Gerard, Jul 24, 2022,16:45 SUPA FERRELL Jul 24, 2022 07:22 YAJAIRA GERARD DO Jul 24, 2022 16:45
[2022-07-24] MEDS: PANTOPRAZOLE 40 MG (PROTONIX) VIAL IV SCH (08:23)
[2022-07-24] MEDS: FLECAINIDE 100 MG (TAMBOCOR) TAB PO SCH ×2 (08:26→17:25)
--- NOTE | 2022-07-24 09:56 | Cardiology Progress Note ---
Subjective Date Seen by Provider: Jul 24, 2022 Time Seen by Provider: 09:40 Subjective/Events-last exam Patient sitting up in chair, denies any chest pain or dyspnea. Objective-Cardiology Exam Last Set of Vital Signs Vital Signs 07/24/22 07/24/22 07:52 11:26 Temp 36.7 Pulse 86 Resp 18 B/P (MAP) 111/74 (86) Pulse Ox 93 O2 Delivery Room Air O2 Flow Rate 0.00 I&O Intake and Output 07/24/22 00:00 Intake Total 2105 ml Output Total 480 ml Balance 1625 ml Intake Oral 2105 ml Drainage Total 480 ml # Voids 8 # Bowel Movements 2 General: Alert, Oriented X3, Cooperative HEENT: Atraumatic, PERRLA Neck: Supple, No JVD, No Thyromegaly Lungs: Clear to Auscultation, Normal Air Movement Heart: Regular Rate, Normal S1, Normal S2, No Murmurs Abdomen: Other (Colostomy bag) Extremities: No Clubbing, No Cyanosis, No Edema, Normal Pulses, No Tenderness/Swelling Skin: No Rashes, No Breakdown, No Significant Lesion Neuro: Normal Speech, Strength at 5/5 X4 Ext, Normal Tone, Sensation Intact Psych/Mental Status: Mental Status NL, Mood NL Results Lab Laboratory Tests 07/24/22 05:11 A/P-Cardiology Admission Diagnosis Acute diverticulitis Paroxysmal atrial fibrillation Hypertension Assessment/Plan Acute diverticulitis with large bowel perforation Status post Soumya procedure with splenic flexure release, has colostomy bag Feeling better today. Continue to monitor Hypokalemia, replace and monitor Paroxysmal atrial fibrillation, history of A-fib ablation in the past that has failed Maintained on flecainide and oral anticoagulation Flecainide and Xarelto were restarted. Maintained sinus rhythm. 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 [place] Hypertension, monitor blood pressure BMI 34 Supervisory-Addendum Brief Supervisory Addendum Participated in pt care: history, MDM, physical Personally performed: exam, history, MDM Care discussed with: JAYRO Results interpretation: Verified all documentation Notes: Patient was seen and evaluated with Sara, examination performed, management plan was discussed, agree with the current scribed note, I made few changes to the note using Italic font Patient was seen at bedside, sitting comfortably, feeling better Denied any palpitation Still in sinus rhythm Possible discharge in the morning Tolerating oral anticoagulation SARA BRITO Jul 24, 2022 09:56 LATOYA VELASQUEZ MD Jul 24, 2022 14:48
[2022-07-24] MEDS: cefTRIAXone INJ 2,000 MG in NS (IVPB) 50 ML IV SCH (13:04)
[2022-07-24] MEDS: RIVAROXABAN 20 MG TABLET (XARELTO) PO SCH (17:25)
[2022-07-25 03:30] VITALS: BP 130/87
[2022-07-25] MEDS: LACTATED RINGERS 1,000 ML IV SCH (04:35)
[2022-07-25 05:37] LABS: HEMATOCRIT 34 % (40-54); HEMOGLOBIN 11.6 g/dL (13.3-17.7); MEAN CORPUSCULAR HEMOGLOBIN 31 pg (25-34); MEAN CORPUSCULAR HGB CONC 34 g/dL (32-36); MEAN CORPUSCULAR VOLUME 93 fL (80-99); MEAN PLATELET VOLUME 9.4 fL (9.0-12.2); PLATELET COUNT 478 10^3/uL (130-400)
[2022-07-25 05:45] LABS: POTASSIUM 3.7 MMOL/L (3.6-5.0)
[2022-07-25 05:46] LABS: CALCIUM 7.7 MG/DL (8.5-10.1)
[2022-07-25 05:50] LABS: CREATININE SERUM 0.76 MG/DL (0.60-1.30)
[2022-07-25] MEDS: HYDROcodone/APAP 5 MG/325 MG (LORTAB) TAB PO PRN ×2 (07:04→11:10)
--- NOTE | 2022-07-25 07:18 | Progress Note - Surgery ---
SUPA FERRELL 07/25/22 0718: Subjective Date Seen by a Provider: Jul 25, 2022 Time Seen by a Provider: 07:10 Subjective/Events-last exam Patient is feeling well today, in high spirits and is ready to get home. He has changed his ostomy independently, wound care will provide instructions to his today as well prior to discharge. His pain is well controlled, he had no output from DHARMESH drain overnight. He is ambulating independently. Review of Systems General: No Chills, No Night Sweats HEENT: No Head Aches, No Dysphasia, No Sore Throat Pulmonary: No Dyspnea, No Cough Cardiovascular: No: Chest Pain, Palpitations, Lt Headedness Gastrointestinal: Abdominal Pain; No: Nausea, Vomiting Genitourinary: No Dysuria, No Frequency Musculoskeletal: No: neck pain, shoulder pain, back pain Neurological: No: Weakness, Numbness, Confusion Objective Exam Vital Signs Date Time Temp Pulse Resp B/P (MAP) Pulse Ox O2 Delivery O2 Flow Rate FiO2 07/25/22 03:30 37.0 77 18 130/87 (101) 94 Room Air 0.00 0.00 07/24/22 23:24 36.2 82 18 132/83 (99) 94 Room Air 0.00 0.00 07/24/22 20:00 Room Air 07/24/22 19:39 36.6 86 18 133/74 (93) 94 Room Air 07/24/22 15:39 36.7 85 18 114/80 (91) 94 Room Air 07/24/22 11:26 36.7 86 18 111/74 (86) 93 Room Air 07/24/22 07:56 36.4 87 18 127/81 (96) 93 Room Air 07/24/22 07:52 94 Room Air 0.00 I & O 07/25/22 07:00 Intake Total 1410 ml Output Total 260 ml Balance 1150 ml Capillary Refill : Less Than 3 Seconds General Appearance: No Apparent Distress, Obese HEENT: PERRL/EOMI, Moist Mucous Membranes Neck: Non Tender, Supple Respiratory: No Accessory Muscle Use, No Respiratory Distress Cardiovascular: Regular Rate, Rhythm, No Murmur Peripheral Pulses: 2+ Dorsalis Pedis (R), 2+ Left Dors-Pedis (L) Gastrointestinal: non tender, soft, other (ostomy is pink, viable with loose brown stool, midline incision covered with wound vac, no serous draininage from dharmesh) Extremity: Non Tender, No Calf Tenderness Neurologic/Psychiatric: Alert, Oriented x3 Skin: Normal Color, Warm/Dry Lymphatic: No Adenopathy Results Lab Laboratory Tests 07/25/22 05:15: White Blood Count 11.0, Red Blood Count 3.69L, Hemoglobin 11.6L, Hematocrit 34L, Mean Corpuscular Volume 93, Mean Corpuscular Hemoglobin 31, Mean Corpuscular Hemoglobin Concent 34, Red Cell Distribution Width 13.2, Platelet Count 478H, Mean Platelet Volume 9.4, Sodium Level 138, Potassium Level 3.7, Chloride Level 106, Carbon Dioxide Level 23, Anion Gap 9, Blood Urea Nitrogen 7, Creatinine 0.76, Estimat Glomerular Filtration Rate 107, BUN/Creatinine Ratio 9, Glucose Level 95, Calcium Level 7.7L, Magnesium Level 2.0 Microbiology 07/16/22 Blood Culture - Final, Complete No growth 07/16/22 Urine Culture - Final, Complete NO GROWTH Assessment/Plan Assessment/Plan Assessment/Plan S/P lap to open Soumya c mobilization of splenic flexture with end colostomy due to perforated diverticulitis Abdominal pain- improved Leukocytosis- 11 today from 11.7 yesterday History of AFib Fpc use of anticoagulant WBC is within normal limits Pain control switched to hydrocodone yesterday still well controlled IV fluids heplock Tolerated pureed well Continue IV abx Continue Xarelto Pull DHARMESH drain prior to discharge Plan to discharge to home today, follow up with Dr. Gerard in two weeks or earlier if needed DVT ppx: SCDS and ambulation GI ppx: Protonix YAJAIRA GERARD DO 07/25/221957: Subjective Subjective/Events-last exam Doing well. Pain controlled. Colostomy functioning. Wound vac in place. Dharmesh drain scant output. Denies n/v fever sweats chills shortness of breath or chest pain. Wanting to go home. Objective Exam General Appearance: No Apparent Distress, Obese HEENT: PERRL/EOMI, Normal ENT Inspection Neck: Non Tender, Supple Respiratory: Chest Non Tender, No Accessory Muscle Use, No Respiratory Distress Cardiovascular: Regular Rate, Rhythm, No JVD Gastrointestinal: non tender, soft, other (ostomy is pink, viable with loose brown stool, midline incision covered with wound vac, scant serous draininage from dharmesh) Extremity: Non Tender, No Calf Tenderness Neurologic/Psychiatric: Alert, Oriented x3 Skin: Normal Color, Warm/Dry Lymphatic: No Adenopathy Assessment/Plan Assessment/Plan Assessment/Plan S/P lap to open Soumya c mobilization of splenic flexture with end colostomy due to perforated diverticulitis Abdominal pain- improved Leukocytosis- 11 today from 11.7 yesterday History of AFib Fpc use of anticoagulant WBC is within normal limits Pain control switched to hydrocodone - well controlled IV fluids heplock Tolerated pureed well Continue IV abx Continue Xarelto Pull DHARMESH drain prior to discharge Plan to discharge to home today, follow up with me in two weeks or earlier if needed Has been set up with wound care for wound vac DVT ppx: SCDS and ambulation GI ppx: Protonix Supervisory-Addendum Brief Verification & Attestation Participated in pt care: history, MDM, physical Personally performed: exam, history, MDM, supervision of care Care discussed with: Medical Student Procedures: n/a Results interpretation: Verified all documentation Verification and Attestation of Medical Student E/M Service A medical student performed and documented this service in my presence. I reviewed and verified all information documented by the medical student and made modifications to such information, when appropriate. I personally performed the physical exam and medical decision making. Yajaira Gerard, Jul 25, 2022,19:57 SUPA FERRELL Jul 25, 2022 07:18 YAJAIRA GERARD DO Jul 25, 2022 19:58
[2022-07-25 07:41] VITALS: BP 127/83
--- NOTE | 2022-07-25 08:30 | Cardiology Progress Note ---
Subjective Date Seen by Provider: Jul 25, 2022 Time Seen by Provider: 08:20 Subjective/Events-last exam Patient sitting up in chair, no new complaints. Planning for discharge home today Objective-Cardiology Exam Last Set of Vital Signs Vital Signs 07/25/22 07/25/22 03:30 07:41 Temp 36.9 Pulse 73 Resp 18 B/P (MAP) 127/83 (98) Pulse Ox 94 O2 Delivery Room Air O2 Flow Rate 0.00 0.00 I&O Intake and Output 07/25/22 00:00 Intake Total 1860 ml Output Total 280 ml Balance 1580 ml Intake Oral 1860 ml Stool Total 250 ml Drainage Total 30 ml # Voids 7 General: Alert, Oriented X3, Cooperative HEENT: Atraumatic, PERRLA Neck: Supple, No JVD, No Thyromegaly Lungs: Clear to Auscultation, Normal Air Movement Heart: Regular Rate, Normal S1, Normal S2, No Murmurs Abdomen: Other (Colostomy bag) Extremities: No Clubbing, No Cyanosis, No Edema, Normal Pulses, No Tenderness/Swelling Skin: No Rashes, No Breakdown, No Significant Lesion Neuro: Normal Speech, Strength at 5/5 X4 Ext, Normal Tone, Sensation Intact Psych/Mental Status: Mental Status NL, Mood NL Results Lab Laboratory Tests 07/25/22 05:15 A/P-Cardiology Admission Diagnosis Acute diverticulitis Paroxysmal atrial fibrillation Hypertension Assessment/Plan Acute diverticulitis with large bowel perforation Status post Soumya procedure with splenic flexure release, has colostomy bag Feeling better today. Continue to monitor Hypokalemia, replaced and improved. Continue to monitor Paroxysmal atrial fibrillation, history of A-fib ablation in the past that has failed Maintained on flecainide and oral anticoagulation Flecainide and Xarelto were restarted. Maintained sinus rhythm. History of cardiac catheterization patient reported that it was normal done about 4 years ago, had yearly stress test and has been normal and follows with a infection prevention specialist in [place] Hypertension, monitor blood pressure BMI 34 OK for discharge from cardiology standpoint. Follow up with primary infection prevention specialist in 4-6 weeks. Supervisory-Addendum Brief Supervisory Addendum Participated in pt care: history, MDM, physical Personally performed: exam, history, MDM Care discussed with: JAYRO Results interpretation: Verified all documentation Notes: Patient was seen and evaluated with Sara, was sitting in a chair, comfortable. Denies any chest pain or shortness of breath. No palpitation. Possible discharge today. I will follow-up with his primary infection prevention specialist SARA BRITO Jul 25, 2022 08:30 LATOYA VELASQUEZ MD Jul 25, 2022 08:44
[2022-07-25] MEDS: metroNIDAZOLE 500MG/100ML IVPB 100 ML IV SCH (08:55)
[2022-07-25] MEDS: PANTOPRAZOLE 40 MG (PROTONIX) VIAL IV SCH (08:55)
[2022-07-25] MEDS: FLECAINIDE 100 MG (TAMBOCOR) TAB PO SCH (08:56)
[2022-07-25 11:51] VITALS: BP 125/80
[2022-07-25] MEDS ORDERED: DOCU-143 PO (13:27)
[2022-07-25] MEDS ORDERED: ACHD5005 PO (13:27)
--- NOTE | 2022-07-25 13:31 | Discharge Inst-Simple/Standard ---
Discharge Inst-Standard Discharge Medications New, Converted or Re-Newed RX: Transmitted to Pharmacy Patient Instructions/Follow Up Plan of Care/Instructions/FU: 2 weeks Moustapha Keep wound care appointments for colostomy and wound vac changes. Activity as Tolerated: No Discharge Diet: Regular Diet Other Inst to Patient Follow up Appt: Make appointment for 2 week. Instructions: No lifting greater than 10 pounds. No strenuous activity. May shower in 24 hours, no tub bath or soaking. Use incentive spirometer at home as directed. No Smoking Skin/Wound Care: Wound vac. to be changed at wound care appointment. Symptoms to Report: Appetite Changes, Extremity Discoloration, Numbness/Tingling, Swelling Increased, Bleeding Excessive, Eyesight Changes, Pain Increased, Urine Color Change, Constipation(Persistent), Fever over 101 degree F, Pain/Pressure in chest, Urinating Difficulty, Cough Up/Vomit Blood, Heart Beat Irreg/Pounding, Pain/Pressure in jaw, Vaginal Bleeding Increase, Cramps in feet or legs, Lightheadedness, Pain/Pressure in shoulder, Diarrhea(Persistent), Memory Changes Suddenly, Questions/Concerns, Weight gain consecutive days, Dizziness/Fainting, Nausea/Vomiting, Shortness of Breath, Weight gain over 2 pounds If questions or concerns contact your physician Or seek help at emergency department. YAJAIRA PAGE DO Jul 25, 2022 13:31
== END 2022-07-25 14:46 | disposition home or self-care (01) | DRG 330 ==
LOC: EDUNIT# 15:57 → ER 16:00 → 4TH 19:46
PROVIDERS: ADMIT Surgery; ATTEND Surgery
PROC: 0D1L0Z4 Bypass Transverse Colon to Cutaneous, Open Approach (ICD-10-PCS; 2022-07-19)
PROC: 0DJD4ZZ Inspection of Lower Intestinal Tract, Percutaneous Endoscopic Approach (ICD-10-PCS; 2022-07-19)
PROC: 0DTN0ZZ Resection of Sigmoid Colon, Open Approach (ICD-10-PCS; principal; 2022-07-19 12:15)
DX: K57.20 Diverticulitis of large intestine with perforation and abscess without bleeding (principal); I48.20 Chronic atrial fibrillation, unspecified; Z79.01 Long term (current) use of anticoagulants; E78.00 Pure hypercholesterolemia, unspecified; I48.0 Paroxysmal atrial fibrillation; I10 Essential (primary) hypertension; E87.6 Hypokalemia; E66.01 Morbid (severe) obesity due to excess calories; Z68.34 Body mass index [BMI] 34.0-34.9, adult; F17.220 Nicotine dependence, chewing tobacco, uncomplicated; F15.90 Other stimulant use, unspecified, uncomplicated; E03.9 Hypothyroidism, unspecified
CPT/HCPCS: 36415; 74177; 80048; 80053; 81000; 83605; 83735; 85007; 85025; 85027; 85610; 85730; 87040; 87088; 93005; 93306; 96361; 96365; 96375; Q9967

== ENCOUNTER → 2022-07-16 | Outpatient (CLI) | payer BC ==
[~2022-07-16] MED LIST: ATOR10TA66 PO; CARV25TA PO; CATHETER FLUSH 10 ML SYR IV PRN; CETI10TA17 PO; FLEC100T PO; HOLD METFORMIN - RECEIVED CONTRAST 20 ML VIAL IV SCH; IOHEXOL 350 MG/ML 100 ML (OMNIPAQUE 350) VIAL IV ONE; L.AC1CAP6 PO; LEVO50TA6 PO; MULT-1136 PO; NS 100 ML (IVPB) BAG IV ONE; RIVA20TA2 PO
--- NOTE | 2022-07-16 12:59 | Diagnostic Imaging Report ---
EXAMINATION: CT abdomen and pelvis with intravenous contrast. TECHNIQUE: Multiple contiguous axial images were obtained through the abdomen and pelvis after the uneventful administration of intravenous contrast. All CT scans use one or more of the following dose optimizing techniques: automated exposure control, MA and/or KvP adjustment based on patient size and exam type or iterative reconstruction. HISTORY: LLQ PAIN COMPARISON: None available. FINDINGS: Lung bases: The lung bases are clear. Solid organs: The liver is normal without focal lesion. The gallbladder is normal. There is no biliary ductal dilation. Pancreas is normal. Spleen is normal. Adrenal glands are normal. The kidneys are normal without hydronephrosis. Bowel: The stomach and small bowel are normal without obstruction. There is scattered colonic diverticulosis. There is focal inflammatory stranding, wall thickening associated with multiple prominent diverticula in the sigmoid colon. The appendix is normal. Peritoneum: There is mild amount of free air and free fluid along the sigmoid colon mesentery without loculated fluid collection. No suspicious lymphadenopathy. Vasculature: Normal without aneurysm. Musculoskeletal: Degenerative changes of the spine without suspicious osseous lesion or compression fracture. Pelvis: The prostate gland is normal. There is mild bladder wall thickening. IMPRESSION: 1. Findings of sigmoid diverticulitis with evidence of perforation. No loculated collection. Dictated by: Dictated on workstation # [id number]
== END ==
LOC: RAD FS 12:07
PROVIDERS: ATTEND Family Medicine
DX: K57.32 Diverticulitis of large intestine without perforation or abscess without bleeding (principal)
CPT/HCPCS: 74177; Q9967

== ENCOUNTER 2022-10-02 05:40 | Outpatient (CLI) | payer BC ==
[~2022-10-02] VITALS: Ht 188 cm; Wt 115.7 kg
[~2022-10-02 05:40] MED LIST changes: +ACHD5005 PO; -CATHETER FLUSH 10 ML SYR IV PRN; +DOCU-143 PO; -HOLD METFORMIN - RECEIVED CONTRAST 20 ML VIAL IV SCH; -IOHEXOL 350 MG/ML 100 ML (OMNIPAQUE 350) VIAL IV ONE; -NS 100 ML (IVPB) BAG IV ONE
== END 2022-10-02 10:11 | disposition home or self-care (01) ==
LOC: PREOP 05:40
PROVIDERS: ATTEND Surgery
DX: Z01.818 Encounter for other preprocedural examination (principal); K57.90 Diverticulosis of intestine, part unspecified, without perforation or abscess without bleeding; Z98.890 Other specified postprocedural states

== ENCOUNTER 2022-10-10 11:47 | Day surgery (SDC) | payer BC ==
[2022-10-10] MEDS ORDERED: LACTATED RINGERS 1,000 ML IV STA (11:58)
== END 2022-10-10 12:20 | disposition home or self-care (01) ==
LOC: ENDO 11:47
PROVIDERS: ATTEND Surgery
DX: Z87.19 Personal history of other diseases of the digestive system (principal); Z90.49 Acquired absence of other specified parts of digestive tract; Z53.8 Procedure and treatment not carried out for other reasons

== ENCOUNTER 2022-11-08 05:30 | Outpatient (CLI) | payer BC ==
[~2022-11-08] VITALS: Ht 188 cm; Wt 113.6 kg
[2022-11-08] MEDS ORDERED: DOCU100C37 PO (14:06)
== END 2022-11-08 14:52 | disposition home or self-care (01) ==
LOC: PREOP 05:30
PROVIDERS: ATTEND Surgery
DX: Z01.818 Encounter for other preprocedural examination (principal)

== ENCOUNTER 2022-11-14 08:02 | Inpatient (IN) | payer BC ==
[~2022-11-14] VITALS: Ht 188 cm; Wt 113.6 kg
[2022-11-14] VITALS (10 sets, daily range): BP systolic 110–151; BP diastolic 71–91
[~2022-11-14 08:02] MED LIST changes: +DOCU100C37 PO
[2022-11-14] MEDS: LACTATED RINGERS 1,000 ML IV PRN ×2 (09:00→13:42)
[2022-11-14] MEDS ORDERED: ceFAZolin INJECTION 2,000 MG in NS (IVPB) 50 ML 50 ML IV ONE (09:00)
[2022-11-14] MEDS ORDERED: metroNIDAZOLE 500MG/100ML IVPB 100 ML IV ONE (09:00)
[2022-11-14] MEDS ORDERED: LIDOCAINE PF 2% 5 ML VIAL ONE (09:38)
[2022-11-14] MEDS ORDERED: ONDANSETRON 4 MG/2 ML (SDV) Z0FRAN ONE (09:38)
[2022-11-14] MEDS ORDERED: dexAMETHasone INJ 10 MG/ML 1 ML VIAL ONE (09:38)
[2022-11-14] MEDS ORDERED: proPOfol 200 MG/20 ML (DIPRIVAN) VIAL IV ONE (09:38)
[2022-11-14] MEDS ORDERED: fentaNYL INJECTION 250 MCG/5 ML VIAL ONE (09:38)
[2022-11-14] MEDS ORDERED: ROCURONIUM 50 MG/5 ML (ZEMURON) VIAL IV ONE ×2 (09:38→13:10)
[2022-11-14] MEDS ORDERED: MIDAZOLAM INJ 2 MG/2 ML VIAL ONE (09:38)
--- NOTE | 2022-11-14 09:39 | Progress Note-Pre Operative ---
Pre-Operative Progress Note Date H&P Reviewed: Nov 14, 2022 Time H&P Reviewed: 09:39 History & Physical: H&P Reviewed, Patient Examed, No changes noted Pre-Operative Diagnosis: hx colonic perforation YAJAIRA PAGE DO Nov 14, 2022 09:39
[2022-11-14] MEDS ORDERED: LIDOCAINE 1% w/EPI 1:100,000 20 ML VIAL ONE (09:42)
[2022-11-14] MEDS ORDERED: GLYCOPYRROLATE INJ 0.2 MG/ML 2 ML VIAL ONE ×2 (11:58→15:32)
[2022-11-14] MEDS ORDERED: PHENYLEPHRINE 100 MCG/ML 10 ML (ANESTHESIA) SYR ONE (13:44)
[2022-11-14] MEDS ORDERED: ceFAZolin INJECTION 2,000 MG ONE (15:10)
[2022-11-14] MEDS ORDERED: ceFAZolin 2,000 MG VIAL IV ONE (15:15)
[2022-11-14] MEDS ORDERED: NEOSTIGMINE (BLOXIVERZ ) 1 MG/1ML 10 ML VIAL ONE (15:32)
[2022-11-14] MEDS ORDERED: SEVOFLURANE (ULTANE) 15 ML INHAL SOLN ONE (15:52)
[2022-11-14] MEDS ORDERED: PROMETHAZINE INJ 25 MG/ML (PHENERGAN) AMP IVP ONE (16:15)
[2022-11-14] MEDS ORDERED: ONDANSETRON 4 MG/2 ML (SDV) Z0FRAN IVP PRN ×2 (16:15)
[2022-11-14] MEDS ORDERED: HYDROmorphone INJECTION 2 MG/ML VIAL IV ONE (16:15)
[2022-11-14] MEDS ORDERED: morphine INJ 10 MG/ML 1ML (SYR OR VIAL) IVP ONE (16:15)
[2022-11-14] MEDS ORDERED: morphine INJ 10 MG/ML 1ML (SYR OR VIAL) ONE (16:29)
[2022-11-14] MEDS: morphine INJ 4 MG/ML 1 ML (VIAL/SYRINGE) IVP PRN ×3 (17:26→22:27)
[2022-11-14] MEDS: LACTATED RINGERS 1,000 ML IV SCH (18:48)
[2022-11-14] MEDS: metroNIDAZOLE 500MG/100ML IVPB 100 ML IV SCH (19:29)
[2022-11-14] MEDS ORDERED: RT-ALBUTEROL SULF 2.5 MG/3 ML PRE-MIX VIAL INH PRN (20:00)
[2022-11-14] MEDS: ceFAZolin INJECTION 2,000 MG in NS (IVPB) 50 ML 50 ML IV SCH (21:45)
[2022-11-15] MEDS: LACTATED RINGERS 1,000 ML IV SCH ×4 (02:19→23:13)
[2022-11-15] MEDS: morphine INJ 4 MG/ML 1 ML (VIAL/SYRINGE) IVP PRN ×2 (02:19→05:22)
[2022-11-15] MEDS: metroNIDAZOLE 500MG/100ML IVPB 100 ML IV SCH (04:25)
[2022-11-15 04:40] VITALS: BP 118/72
[2022-11-15] MEDS: ceFAZolin INJECTION 2,000 MG in NS (IVPB) 50 ML 50 ML IV SCH (05:46)
--- NOTE | 2022-11-15 07:12 | Progress Note - Surgery ---
SKY MENDEZ 11/15/22 0712: Subjective Date Seen by a Provider: Nov 15, 2022 Time Seen by a Provider: 07:07 Subjective/Events-last exam Patient is POD 1 for laparoscopic colostomy reversal. Patient has 5/10 pain that is nonradiating, around the incision site. Patient says the pain has been alleviated by the pain medication, and nothing in particular has made his pain worse. He is in good spirits and is very appreciative of everyone. Patient has tolerated ice chips well- no nausea. Patient says he has had no bowel movements, and has not passed any gas recently. He is eager to start moving and be discharged soon. Focused Exam Sepsis Stage: Ruled Out Respiratory: Chest Non Tender, Lungs Clear, Normal Breath Sounds, No Accessory Muscle Use; No No Respiratory Distress, No Accessory Muscle Use Cardiovascular: Regular Rate, Rhythm, No Edema; No No Gallop, No No Murmur; Normal Peripheral Pulses Capillary Refill: Less Than 3 Seconds Peripheral Pulses: 2+ Radial Pulses (R), 2+ Radial Pulses (L) Skin: normal color, warm/dry; No cyanosis, No cool Objective Exam Vital Signs Date Time Temp Pulse Resp B/P (MAP) Pulse Ox O2 Delivery O2 Flow Rate FiO2 11/15/22 04:40 37.3 105 20 118/72 (87) 93 Room Air 11/14/22 23:24 37.2 104 20 126/77 (93) 91 Room Air 11/14/22 19:41 36.7 85 93 11/14/22 19:32 Room Air 11/14/22 19:27 36.7 86 18 151/91 (111) 93 Room Air 11/14/22 19:25 Room Air 11/14/22 18:26 Room Air 11/14/22 16:50 Room Air 11/14/22 16:40 36.1 16 120/78 (92) 94 Room Air 11/14/22 16:40 OxyMask 3.00 11/14/22 16:30 13 128/80 (96) 96 OxyMask 3.00 11/14/22 16:25 OxyMask 3.00 11/14/22 16:20 12 123/81 (95) 99 OxyMask 3.00 11/14/22 16:10 OxyMask 8 11/14/22 16:10 16 110/79 (89) 99 OxyMask 8 11/14/22 16:00 16 116/71 (86) 99 OxyMask 8 11/14/22 16:00 36.0 62 18 123/77 (92) 96 Room Air 11/14/22 15:57 36.1 20 116/80 (92) 98 OxyMask 8 11/14/22 15:57 OxyMask 8 11/14/22 08:45 Room Air 11/14/22 08:45 36.5 58 22 122/81 (95) 98 Room Air I & O 11/15/22 06:59 Intake Total 2450 ml Output Total 1175 ml Balance 1275 ml Capillary Refill : General Appearance: No Apparent Distress, WD/WN HEENT: PERRL/EOMI, TMs Normal, Normal ENT Inspection, Pharynx Normal Neck: Full Range of Motion, Normal Inspection; No Non Tender, No Limited Range of Motion Respiratory: Chest Non Tender, Lungs Clear, Normal Breath Sounds; No No Respiratory Distress, No Accessory Muscle Use Cardiovascular: Regular Rate, Rhythm, No Edema, Normal Peripheral Pulses; No Bradycardia, No Tachycardia Peripheral Pulses: 2+ Radial Pulses (R), 2+ Radial Pulses (L) Gastrointestinal: no organomegaly, no pulsatile mass, distended (diffuse distention of abdomen); No guarding; tenderness (pain around incision sites) Extremity: Normal Capillary Refill, Normal Inspection; No Inflammation, No Slow Capillary Refill Neurologic/Psychiatric: Alert, Oriented x3, No Motor/Sensory Deficits, Normal 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 No bowel function. Using IS some. Tolerating ice chips. Not ambulating yet. Denies n/v fever sweats chills shortnesss of breath or chest pain. Objective Exam General Appearance: No Apparent Distress, WD/WN HEENT: PERRL/EOMI, Normal ENT Inspection Neck: Full Range of Motion, Normal Inspection; No Non Tender Respiratory: Chest Non Tender, No Accessory Muscle Use, No Respiratory Distress Cardiovascular: Regular Rate, Rhythm, No JVD Gastrointestinal: soft; No distended (diffuse distention of abdomen); tenderness (pain around incision sites, slight serosang drainage) Extremity: No Normal Capillary Refill, No Normal Inspection Neurologic/Psychiatric: Alert, Oriented x3 Skin: Normal Color, Warm/Dry Lymphatic: No Adenopathy Assessment/Plan Assessment/Plan Assessment/Plan laproscopic hand assisted lysis of adhesions, colostomy reversal with mobilization of splenic flexure with end to end anastamosis Hypothyroidism Hyperlipidemia Hx afib Advance to clear liquids Dc bajwa in am IV fluids Pain contorl Ambulated Encourage patient movement Labs in am SCD's for dvt prophylaxis Will hold off on anticoagulation, okay to start tomorrow if hgb stable. Supervisory-Addendum Brief Verification & Attestation Participated in pt care: history, MDM, physical Personally performed: exam, history, MDM, supervision of care Care discussed with: Medical Student Procedures: n/a Results interpretation: Verified all documentation Verification and Attestation of Medical Student E/M Service A medical student performed and documented this service in my presence. I reviewed and verified all information documented by the medical student and made modifications to such information, when appropriate. I personally performed the physical exam and medical decision making. Yajaira Gerard, Nov 15, 2022,15:10 SKY MENDEZ Nov 15, 2022 07:12 YAJAIRA GERARD DO Nov 15, 2022 15:07
[2022-11-15 07:53] VITALS: BP 131/66
[2022-11-15] MEDS: HYDROcodone/ACETAMINOPHEN 5 MG/325 MG TABLET PO PRN ×4 (07:53→20:07)
[2022-11-15 08:27] LABS: HEMATOCRIT 45 % (40-54); HEMOGLOBIN 15.4 g/dL (13.3-17.7); MEAN CORPUSCULAR HEMOGLOBIN 32 pg (25-34); MEAN CORPUSCULAR HGB CONC 34 g/dL (32-36); MEAN CORPUSCULAR VOLUME 93 fL (80-99); MEAN PLATELET VOLUME 9.6 fL (9.0-12.2); PLATELET COUNT 227 10^3/uL (130-400)
[2022-11-15 08:37] LABS: POTASSIUM 4.3 MMOL/L (3.6-5.0)
[2022-11-15 08:38] LABS: CALCIUM 8.7 MG/DL (8.5-10.1)
[2022-11-15 08:42] LABS: CREATININE SERUM 1.18 MG/DL (0.60-1.30)
[2022-11-15 08:44] LABS: MAGNESIUM 1.6 MG/DL (1.6-2.4)
--- NOTE | 2022-11-15 11:47 | Physical Therapy Progress Note ---
Therapy Progress Note PT talked with patient and spouse. They had just returned from a walk and declined skilled PT need. JENARO GUZMAN PT Nov 15, 2022 11:47
--- NOTE | 2022-11-15 12:02 | Progress Note-Post Operative ---
Post-Operative Progess Note Surgeon (s)/Integration Aide (s) Surgeon PEREZ BRUNO DO Integration Aide: none Pre-Operative Diagnosis Difficulty with anastomosis Post-Operative Diagnosis Retained fecal material Procedure & Operative Findings Date of Procedure 11/15/22 Procedure Performed/Findings Flexible sigmoidoscopy with removal of fecal material PROCEDURE NOTE: The patient was in the OR in the lithotomy position; he was intubated and Dr. Gerard was attempting to do anastomosis and we could not get the rectal sounds to advance to the end of the recto-sigmoid stump. I was down below and used the colonoscopy as a Flexible sigmoidoscopy to go up and visualize the colon remnant. I found 2 large fecal ball in the colon. I had pushed to about 30-40 cm and got to the resected portion of colon. I then elected to use a Moya net to grab a fecal ball completely pull it out and then went back in to get two more pieces. I noted some diverticula as well while doing this. Now that the colon was cleaned out able to easily get the 25, 28 and then [address] to the end of the colon; enabling us to get the stapling device in to complete the anastomosis. Once the anastomosis was done, replaced the scope and insuflated to check for leak; none seen. I also took a picture of the anastomosis; it looked good. Finally, slowly withdrew the scope and noted some internal hemorrhoids on the way out. Anesthesia Type GET Estimated Blood Loss Estimated blood loss (mL): none Specimens/Packing Specimens Removed fecal material not sent to pathology PEREZ BRUNO DO Nov 15, 2022 12:02
[2022-11-15 12:07] VITALS: BP 115/71
--- NOTE | 2022-11-15 12:35 | Consultation - Hospitalist ---
NATHAN MCKEON 11/15/22 1235: HPI History of Present Illness: HPI/Chief Complaint Adalberto Remy is a 65 year old man with a PMH of bowel perforation, hyperlipidemia, atrial fibrillation, chronic anticoagulation and hypothryoidism who is 1 day s/p laparoscopic colostomy reversal. On 07/19/2022, he underwent colon resection with end colostomy at the splenic flexure for bowel perforation due to diverticulitis. This morning, he appears comfortable with his present at beside. He reports bilateral lower abdominal pain since yesterday's procedure that he describes as a "very manageable 5/10". He also indicates mild bilateral rib tenderness that he attributes to nerve block administration. He is tolerating ice chips well and without N/V/D. He has not yet passed flatus or belched. Urine output 0.21 ml/kg/hr since midnight. He purports to be using his spirometer 1x/hr as instructed. He has requested his morphine be replaced with hydrocodone due to "nightmares" he experienced last night. He denies chest pain, dyspnea, and chills. Source: patient, family Exam Limitations: no limitations () Date Seen 11/15/22 Attending Physician Roxann Rodrgiues MD PCP Admitting Physician: Srikanth Gerard DO Attending Physician: Srikanth Gerard DO Referring Physician Date of Admission Nov 14, 2022 at 08:02 Home Medications & Allergies Home Medications Reviewed patient Home Medication Reconciliation performed by pharmacy medication reconciliations smog technician and/or nursing. Patients Allergies have been reviewed. Allergies Allergies Coded Allergies No Known Drug Allergies (Unverified11/08/22) Past [id number]-[id number] Hx Patient Social History Tobacco Use?: No Use of E-Cig and/or Vaping dev: No Substance use?: No Alcohol Use?: No Pt feels they are or have been: No Immunizations Up To Date Date of Influenza Vaccine: Jan 07, 2022 First/Initial COVID19 Vaccinat: 01/25 Second COVID19 Vaccination Andre: 02/25 Tetanus Booster (TDap): Less Than 5 Years Hepatitis A: No Hepatitis B: No Seasonal Allergies Seasonal Allergies: Yes Current Status Advance Directives: Yes Advance Directive Location: Scanned into EMR Communicates: Verbally Primary Language: [place] Preferred Spoken Language: [place] Is interpretation needed?: No Past Medical History Surgeries: Abdominal, Cardiac Currently Using CPAP: No Currently Using BIPAP: No Atrial Fibrillation Sexually Transmitted Disease: No Diverticulosis Hypothyroidsim Blood Disorders: No Adverse Reaction/Blood Tranf: No Family Medical History No Pertinent Family Hx Review of Systems Constitutional: No chills, No dizziness, No weakness Respiratory: No short of breath Cardiovascular: No chest pain, No palpitations, No syncope Gastrointestinal: abdominal pain (bilateral lower quadrants, rated 5/10); No nausea, No vomiting Genitourinary: decreased output; No dysuria Musculoskeletal: other (lower rib pain bilaterally rated 3/10) Physical Exam Physical Exam Vital Signs Vital Signs - First Documented Capillary Refill : Less Than 3 Seconds Height, Weight, BMI Height: '" Weight: lbs. oz. kg; 32.14 BMI Method: General Appearance: No Apparent Distress, WD/WN HEENT: PERRL/EOMI, TMs Normal, Normal ENT Inspection, Pharynx Normal Neck: Full Range of Motion, Normal Inspection; No Non Tender, No Limited Range of Motion Respiratory: Chest Non Tender, Lungs Clear, Normal Breath Sounds; No No Respiratory Distress, No Accessory Muscle Use Cardiovascular: Regular Rate, Rhythm, No Edema, Normal Peripheral Pulses; No Bradycardia, No Tachycardia Extremity: Normal Capillary Refill, Normal Inspection; No Inflammation, No Slow Capillary Refill Neurologic/Psychiatric: Alert, Oriented x3, No Motor/Sensory Deficits, Normal 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 Assessment/Plan Assessment and Plan Assess & Plan/Chief Complaint 1 day s/p colostomy reversal Leukocytosis - S/p Soumya procedure of splenic flexure for perforated diverticulitis (07/29/22) - Cefazolin and metronidazole per surgery - Catheter removed and starting ambulation per surgery - Holding Xarelto per surgery AFib Chronic anticoagulation - Cardiology consulted - Restart home flecainide 100 mg bid - Holding xarelto as per above Hyperlipidemia - Restart home atorvostatin 10 mg Hypothyroidism - Restart home levothyroxine 50 mg NENA BARBA MD 11/15/22 1313: HPI Referring Physician Dr Srikanth Gerard Assessment/Plan Assessment and Plan Assess & Plan/Chief Complaint Pt reports doing well. Pain controlled. Up walking already. tolerating ice chips. No flatus or BM yet. Dr Gerard requests us to hold anticoagulation another day so will continue to do so. Discussed with patient. Cardiolgoy consulted as well. Supervisory-Addendum Brief Verification & Attestation Participated in pt care: history, MDM, physical Personally performed: exam, history, MDM, supervision of care Care discussed with: Medical Student Procedures: n/a Results interpretation: Verified all documentation Verification and Attestation of Medical Student E/M Service A medical student performed and documented this service in my presence. I reviewed and verified all information documented by the medical student and made modifications to such information, when appropriate. I personally performed the physical exam and medical decision making. Nena Barba, Nov 15, 2022,13:12 NATHAN MCKEON Nov 15, 2022 12:35 NENA BARBA MD Nov 15, 2022 13:13
--- NOTE | 2022-11-15 14:13 | Consultation-Cardiology ---
HPI-Cardiology Cardiology Consultation: Date of Consultation 11/15/22 Time Seen by a Provider: 10:00 Date of Admission Attending Physician Roxann Rodrigues MD Admitting Physician Admitting Physician: Srikanth Gerard DO Attending Physician: Srikanth Gerard DO Consulting Physician GELY RENAE MD, MA, FACP, FACC, FSCAI, CCDS Physician requesting consult: Dr. Gerard HPI: Chief Complaint: Reason for Card consult: H/o A Fib 57 yo man who had PAF diagnosed several years ago, underwent ablation at [place], [place], but had recurrent A Fib and has since been on flecainide. Also takes oral anticoag for stroke prophylaxis. Came in for colostomy reversal to Dr Gerard's service and that has been successfully performed. He does not report cp or palp or syncope or shortness of breath or leg swelling. Review of Systems-Cardiology Review of Systems Constitutional: No malaise, No tiredness, No weight loss, No weight gain Eyes: No vision change Ears/Nose/Throat: No ear discharge, No nasal drainage, No recent hearing loss Respiratory: As described under HPI Cardiovascular: As described under HPI Gastrointestinal: No diarrhea, No nausea, No vomiting Genitourinary: No dysuria, No hematuria, No urine frequency changes Musculoskeletal: No back pain, No joint pain Skin: No rash, No ulcerations Psychiatric/Neurological: No seizure, No focal weakness, No syncope Hematologic: No bleeding abnormalities [id number]-[id number] Hx Patient Social History 2nd Hand Smoke Exposure: No Alcohol Use?: No Pt feels they are or have been: No Immunizations Up To Date Tetanus Booster (TDap): Less than 5yrs Date of Influenza Vaccine: Jan 07, 2022 Past Medical History PMH As described under Assessment. Family Medical History Family Medical History: He does not report fam h/o early CAD Allergies and Home Medications Allergies Coded Allergies: No Known Drug Allergies (Unverified , 11/08/22) Patient Home Medication List Home Medication List Reviewed: Yes Atorvastatin Calcium (Atorvastatin Calcium) 10 Mg Tablet, 10 MG PO 1800, (Reported) Entered as Reported by: JODY GARRETT on 07/17/22 1203 Last Action: Reviewed Carvedilol (Carvedilol) 25 Mg Tablet, 25 MG PO BID WITH MEALS, (Reported) Entered as Reported by: JODY GARRETT on 07/17/221202 Last Action: Reviewed Cetirizine HCl (Cetirizine HCl) 10 Mg Tablet, 10 MG PO DAILY, (Reported) Entered as Reported by: JODY GARRETT on 07/17/221202 Last Action: Reviewed Docusate Sodium (Docusate Sodium) 100 Mg Capsule, 100 MG PO BID PRN for CONSTIPATION-1ST LINE, (Reported) Entered as Reported by: Althea Storm on 11/08/22 1406 Last Action: Reviewed Flecainide Acetate (Flecainide Acetate) 100 Mg Tablet, 100 MG PO BID WITH MEALS, (Reported) Entered as Reported by: JODY GARRETT on 07/17/221202 Last Action: Reviewed L.acidoph & Paracasei,B.lactis (Probiotic) 10 Billion Cell Capsule, 1 EACH PO DAILY, (Reported) Entered as Reported by: JODY GARRETT on 07/17/221202 Last Action: Reviewed Levothyroxine Sodium (Levothyroxine Sodium) 50 Mcg Tablet, 50 MCG PO DAILY, (Reported) Entered as Reported by: JODY GARRETT on 07/17/221202 Last Action: Reviewed Multivitamin (Multivitamin) 1 Each Tablet, 1 EACH PO 1800, (Reported) Entered as Reported by: JODY GARRETT on 07/17/221202 Last Action: Reviewed Rivaroxaban (Xarelto Tablet) 20 Mg Tablet, 20 MG PO 1800, (Reported) Entered as Reported by: JODY GARRETT on 07/17/221202 Last Action: Reviewed Physical Exam-Cardiology Physical Exam Vital Signs/I&O 11/15/22 11/15/22 11/15/22 11/15/22 04:40 07:53 08:15 12:07 Temp 37.3 37.4 37.4 Pulse 105 97 89 Resp 20 19 19 B/P (MAP) 118/72 (87) 131/66 (87) 115/71 (86) Pulse Ox 93 91 91 91 O2 Delivery Room Air Room Air Room Air Room Air 11/14/22 23:59 Intake Total 1150 ml Output Total 575 ml Balance 575 ml Capillary Refill : Less Than 3 Seconds Constitutional: AAO x 3, well-developed, well-nourished HEENT: hearing is well preserved; No xanthelasmas are seen Neck: carotid pulses are 2 + bilaterally, with good upstrokes Respiratory: No accessory muscle use; chest expansion is symmetric, chest is bilaterally symmetric, other (good, bilat air entry) Gastrointestinal: No tender; soft; No guarding, No rebound Extremities: No clubbing, No cyanosis, No significant edema Neurologic/Psychiatric: oriented x 3, other (moves all limbs equally) Skin: normal color, warm/dry; No cyanosis, No cool Data Review Labs Laboratory Tests 11/15/22 08:20: White Blood Count 21.0H, Red Blood Count 4.83, Hemoglobin 15.4, Hematocrit 45, Mean Corpuscular Volume 93, Mean Corpuscular Hemoglobin 32, Mean Corpuscular Hemoglobin Concent 34, Red Cell Distribution Width 14.3, Platelet Count 227, Mean Platelet Volume 9.6, Sodium Level 140, Potassium Level 4.3, Chloride Level 109H, Carbon Dioxide Level 22, Anion Gap 9, Blood Urea Nitrogen 13, Creatinine 1.18, Estimat Glomerular Filtration Rate 73, BUN/Creatinine Ratio 11, Glucose Level 124H, Calcium Level 8.7, Magnesium Level 1.6 Microbiology 11/14/22 MRSA Screen - Final, Complete MRSA not isolated Laboratory Tests 11/15/22 08:20 A/P-Cardiology Assessment/Admission Diagnosis Acute diverticulitis with large bowel perforation in July 2022 - Status post Soumya procedure with splenic flexure release, has colostomy bag - Colostomy reversal on 11/14/22 Paroxysmal atrial fibrillation, history of A-fib ablation in the past after which he had recurrent a fib - Maintained on flecainide and oral anticoagulation History of normal cardiac catheterization in or around 2018 - pt also report normal yearly stress tests with his regular [employer] H/o hypertension - currently controlled Discussion and Recomendations * Continue flecainide * Resume rivaroxaban when acceptable from surgical standpoint * Monitor labs and maintain acid-base and electrolyte balance * Pt to f/u with his regular [employer] upon d/c * Thanks for the consult GELY RENAE MD FACP [facility] CCDS Nov 15, 2022 14:13
--- NOTE | 2022-11-15 14:31 | Anesthesia-General Post-Op ---
General Patient Condition Mental Status/LOC: Same as Preop Cardiovascular: Satisfactory Nausea/Vomiting: Absent Respiratory: Satisfactory Pain: Controlled Complications: Absent Post Op Complications Complications None Follow Up Care/Instructions Patient Instructions None needed. Anesthesia/Patient Condition Patient Condition Patient is ambulating and doing well, no complaints, stable vital signs, no apparent adverse anesthesia problems. No complications reported per nursing. DANNI FUNK DO Nov 15, 2022 14:31
[2022-11-15 15:30] VITALS: BP 138/79
--- NOTE | 2022-11-15 15:30 | Physical Therapy Progress Note ---
Therapy Progress Note Received new PT Order. Discussed with nurse and spoke with patient. Patient reports he is Independent with all bed mobility and transfers and has been ambulating without AD around the 4th floor. Patient requires no skilled PT at this time. CAROLIN DIOP PT Nov 15, 2022 15:30
--- NOTE | 2022-11-15 17:23 | OPERATIVE REPORT ---
DATE OF SERVICE: 11/14/2022 PREOPERATIVE DIAGNOSIS: History of colonic perforation. POSTOPERATIVE DIAGNOSIS: History of colonic perforation. PROCEDURE: Laparoscopic hand-assisted lysis of adhesion, 2 hours colostomy takedown. Mobilization of splenic flexure and end-to-end anastomosis. SURGEON: Yajaira Gerard DO RN FAMILY PRACTICE: Kelby Izquierdo DO, assisted in retraction, dissection, and closure. ANESTHESIA: General. ESTIMATED BLOOD LOSS: 200 mL COMPLICATIONS: None. INDICATIONS: The patient is a 57-year-old male with history of colonic perforation. He had a Soumya procedure. He wishes to have reversal performed. He understands risks and benefits and wishes to proceed. Consent was signed in chart. DESCRIPTION OF PROCEDURE: The patient was taken to the operating suite, prepped and draped in sterile fashion. Timeout was performed. Left upper quadrant, local anesthetic was infiltrated. An 11 blade scalpel was used to make a skin incision. Cautery was used to dissect down through subcutaneous tissues. The muscle was divided and the posterior fascia was divided and the abdomen was then entered. A sorensen trocar was inserted. Pneumoperitoneum was achieved. Scope was then inserted. Multiple adhesions present within the stomach. I was able to work the scope over to the right upper quadrant where a 5 mm trocar was able to be placed. We began taking down some adhesions both with blunt and LigaSure and with no energy with scissors until another 5 mm trocar was placed in the right lower quadrant. Continued to slowly take down the small bowel that was adhered to the abdominal wall. Freeing the majority of the abdomen, still at the midline still difficulty down to the pelvis with significant adhesions Therefore, at this time decided to put a hand port was inserted through the previous midline scar. A #15 blade scalpel was used to make skin incision. Cautery used to dissect down to the [ ], which was then opened and then enough for a hand port. Kochers were used to elevate the abdominal wall. Adhesions were taken down with both blunt and Metzenbaums until a GelPort was able to be inserted and further dissection of the rest of the adhesions down the pelvis were then free. Adhesions around the colostomy were then taken down, freeing the colostomy up to the fascia and then this took approximately 2 hours. Attention was then made to take down the colostomy. The #15 blade scalpel was used to cut around the colostomy site. Cautery used to dissect down through the subcutaneous tissues down to the fascia, which was then freed. The left colon was then brought up through the site of the colostomy. This was dissected around and a pursestring stapler was fired and distal to the staple line was then removed with curved Mayos. A 29 anvil was then inserted and then tied around it and then dropped back within the abdomen. No flank was present for bringing the colon down to the pelvis. The colostomy defect in the abdominal wall was closed using 1-0 looped PDS in a running fashion. Abdomen was further insufflated. The colon was mobilized along the left gutter along the white line of Toldt still without adequate length, so therefore, the splenic flexure had to be taken down. Once the splenic flexure was taken down and across the transverse colon, this was mobilized well enough until we had adequate length for the anastomosis. Dr. Izquierdo went down below, but those were not able to be inserted properly, so the colonoscope was brought to the operating room. See his documentation for his flexible sigmoidoscopy and retrieval of fecal material. Once the stapler was inserted through the rectum, the end-to-end anastomosis was then created. The pelvis was filled with saline and air was pumped into the colon. No leak present with the air test. The abdomen was then irrigated with copious amounts of irrigation and suction. The fascia of the midline was then closed using 1-0 looped PDS. The 12 mm fascial defect at the port was closed using 0 Vicryl in [id number] fashion. The skin was then closed with consuelo. The patient tolerated the procedure well without any complications, taken to recovery room in stable condition. Job ID: [id number] DocumentID: [id number] Dictated Date: 11/15/2022 12:24:04 Floater Operator Date: 11/15/2022 17:21:00 Dictated By: YAJAIRA GERARD DO
[2022-11-15] MEDS: FLECAINIDE 100 MG TABLET PO SCH (17:45)
[2022-11-15] MEDS: carvediloL 12.5 MG TABLET PO SCH (17:46)
[2022-11-15 19:46] VITALS: BP 117/65
[2022-11-16] MEDS: HYDROcodone/ACETAMINOPHEN 5 MG/325 MG TABLET PO PRN ×4 (00:25→13:18)
[2022-11-16 00:27] VITALS: BP 114/79
[2022-11-16 04:37] VITALS: BP 120/76
[2022-11-16 05:58] LABS: HEMATOCRIT 40 % (40-54); HEMOGLOBIN 13.6 g/dL (13.3-17.7); MEAN CORPUSCULAR HEMOGLOBIN 32 pg (25-34); MEAN CORPUSCULAR HGB CONC 34 g/dL (32-36); MEAN CORPUSCULAR VOLUME 94 fL (80-99); MEAN PLATELET VOLUME 9.7 fL (9.0-12.2); PLATELET COUNT 190 10^3/uL (130-400); WHITE BLOOD COUNT 12.7 10^3/uL (4.3-11.0)
[2022-11-16 06:16] LABS: POTASSIUM 3.8 MMOL/L (3.6-5.0)
[2022-11-16 06:17] LABS: CALCIUM 8.5 MG/DL (8.5-10.1)
[2022-11-16 06:22] LABS: CREATININE SERUM 0.95 MG/DL (0.60-1.30)
[2022-11-16 06:24] LABS: MAGNESIUM 1.8 MG/DL (1.6-2.4)
[2022-11-16] MEDS ORDERED: LEVOTHYROXINE 50 MCG TABLET PO SCH (06:30)
[2022-11-16 08:00] VITALS: BP 130/87
[2022-11-16] MEDS: carvediloL 12.5 MG TABLET PO SCH (08:42)
[2022-11-16] MEDS: FLECAINIDE 100 MG TABLET PO SCH (08:42)
[2022-11-16] MEDS: LACTATED RINGERS 1,000 ML IV SCH (08:44)
[2022-11-16] MEDS ORDERED: LACTOBACILLUS ACIDOPHILUS (PROBIOTIC) CAPSULE PO SCH (09:00)
--- NOTE | 2022-11-16 10:30 | Progress Note - Surgery ---
NEGRO SANFORD 11/16/22 1030: Subjective Time Seen by a Provider: 10:25 Subjective/Events-last exam Pt states that his pain is a 5/10 currently. He describes the pain as a hurting sensation, mostly a feeling of being sore. It worsens when he coughs or laughs. He reports no nausea or vomiting. He states that he is urinating a lot. He has been having gas but it is not causing pain. He had a BM 10 minutes ago and he reports no complications and no blood. He has been staying active, he walks the halls and takes frequent trips outside. He has no pain during or after these walks. He reports overall feeling of wellness. He has a big appetite right now. Review of Systems General: No Chills, No Night Sweats, No Fatigue; Appetite HEENT: No Head Aches, No Visual Changes, No Eye Pain, No Ear Pain Pulmonary: Cough Cardiovascular: No: Chest Pain, Palpitations Gastrointestinal: No: Nausea, Vomiting Neurological: No: Weakness, Numbness, Incoordination, Change in speech, Confusion Objective Exam Vital Signs Date Time Temp Pulse Resp B/P (MAP) Pulse Ox O2 Delivery O2 Flow Rate FiO2 11/16/22 08:49 93 Room Air 11/16/22 08:00 37.0 62 18 130/87 (101) 93 Room Air 11/16/22 04:37 36.9 76 18 120/76 (91) 93 11/16/22 00:27 37.0 76 18 114/79 (91) 92 11/15/22 20:05 Room Air 11/15/22 19:46 37.5 88 18 117/65 (82) 90 11/15/22 18:59 90 Room Air 11/15/22 15:30 37.4 87 20 138/79 (98) 93 11/15/22 12:07 37.4 89 19 115/71 (86) 91 Room Air I & O 11/16/22 07:00 Intake Total 1950 ml Output Total 1700 ml Balance 250 ml Capillary Refill : Less Than 3 Seconds General Appearance: No Apparent Distress, WD/WN HEENT: PERRL/EOMI; No Photophobia, No Scleral Icterus (L), No Scleral Icterus (R) Respiratory: Chest Non Tender, Lungs Clear, Normal Breath Sounds, No Accessory Muscle Use, No Respiratory Distress Cardiovascular: Regular Rate, Rhythm, No Murmur Peripheral Pulses: 2+ Dorsalis Pedis (R), 2+ Left Dors-Pedis (L), 2+ Radial Pulses (R), 2+ Radial Pulses (L) Gastrointestinal: normal bowel sounds, soft, distended (diffuse distention of abdomen); No tenderness Neurologic/Psychiatric: Alert, Oriented x3, No Motor/Sensory Deficits, Normal Mood/Affect Skin: Normal Color, Warm/Dry Results Lab Laboratory Tests 11/16/22 05:34: White Blood Count 12.7H, Red Blood Count 4.32, Hemoglobin 13.6, Hematocrit 40, Mean Corpuscular Volume 94, Mean Corpuscular Hemoglobin 32, Mean Corpuscular Hemoglobin Concent 34, Red Cell Distribution Width 14.4, Platelet Count 190, Mean Platelet Volume 9.7, Sodium Level 141, Potassium Level 3.8, Chloride Level 108H, Carbon Dioxide Level 24, Anion Gap 9, Blood Urea Nitrogen 13, Creatinine 0.95, Estimat Glomerular Filtration Rate 95, BUN/Creatinine Ratio 14, Glucose Level 89, Calcium Level 8.5, Magnesium Level 1.8 Microbiology 11/14/22 MRSA Screen - Final, Complete MRSA not isolated Assessment/Plan Assessment/Plan Assessment/Plan S/P Colostomy Reversal Hypothyroidism Hyperlipidemia Hx Afib Pt is to continue with clear fluids only. Encouraged ambulation and IS use. Labs are consistent with no signs of infection. Labs are stable. Will discuss with surgeon if pt can start at home meds. KELBY BRUNO DO 11/16/22 1515: Subjective Time Seen by a Provider: 12:51 Subjective/Events-last exam Pt seen and examined, states he is tolerating diet and feels good. He has not been needing pain meds. Review of Systems Pulmonary: Cough Cardiovascular: No: Chest Pain, Palpitations Gastrointestinal: Abdominal Pain (mild ); No: Nausea, Vomiting Objective Exam General Appearance: No Apparent Distress, WD/WN HEENT: PERRL/EOMI Respiratory: Lungs Clear, Normal Breath Sounds, No Accessory Muscle Use, No Respiratory Distress Cardiovascular: Regular Rate, Rhythm, No Murmur Gastrointestinal: soft, tenderness (mild at incisions), other (incisions c/d/i) Assessment/Plan Assessment/Plan Assessment/Plan S/P Colostomy Reversal Hypothyroidism Hyperlipidemia Hx Afib Pt is to continue with clear fluids only. Encouraged ambulation and IS use. Labs are consistent with no signs of infection. Labs are stable. Will discuss with surgeon if pt can start at home meds. Pt is doing well and will send him home. Supervisory-Addendum Brief Verification & Attestation Participated in pt care: history, MDM, physical Personally performed: exam, history, MDM, supervision of care Care discussed with: Medical Student Procedures: n/a Verification and Attestation of Medical Student E/M Service A medical student performed and documented this service. I then reviewed and verified all information documented by the medical student and made modifications to such information, when appropriate. I personally performed a physical exam, medical decision making and then discussed any differences between the notes and made revisions as necessary to create one note. Kelby Bruno , 11/16/22 , 15:15 NEGRO SANFORD Nov 16, 2022 10:30 KELBY BRUNO DO Nov 16, 2022 15:15
--- NOTE | 2022-11-16 11:42 | Progress Note - Hospitalist ---
NATHAN MCKEON 11/16/22 1142: Subjective HPI/CC On Admission Adalberto Remy is a 65 year old man with a PMH of bowel perforation, hyperlipidemia, atrial fibrillation, chronic anticoagulation and hypothryoidism who is 1 day s/p laparoscopic colostomy reversal. On 07/19/2022, he underwent colon resection with end colostomy at the splenic flexure for bowel perforation due to diverticulitis. This morning, he appears comfortable with his present at beside. He reports bilateral lower abdominal pain since yesterday's procedure that he describes as a "very manageable 5/10". He also indicates mild bilateral rib tenderness that he attributes to nerve block administration. He is tolerating ice chips well and without N/V/D. He has not yet passed flatus or be lched. Urine output 0.21 ml/kg/hr since midnight. He purports to be using his spirometer 1x/hr as instructed. He has requested his morphine be replaced with hydrocodone due to "nightmares" he experienced last night. He denies chest pain, dyspnea, and chills. Subjective/Events-last exam Today, the patient is in good spirits and states he hopes to be discharged soon. He continues to report "manageable 4-5/10" bilateral lower abdominal pain and mild tenderness around his incisions. He has been belching since yesterday afternoon and began to have flatus around 5:30am this morning. He reports a robust appetite. Total urine output of 0.84 ml/kg/hr last night. He states he is ambulating without difficultly and took a walk outside this morning. He denies nausea, vomiting, chills, dysuria chest pain and shortness of breath. Objective Exam Vital Signs Vital Signs Date Time Temp Pulse Resp B/P (MAP) Pulse Ox O2 Delivery O2 Flow Rate FiO2 11/16/22 08:49 93 Room Air 11/16/22 08:00 37.0 62 18 130/87 (101) 11/14/22 16:40 3.00 Capillary Refill : Less Than 3 Seconds General Appearance: No Apparent Distress HEENT: PERRL/EOMI Respiratory: Chest Non Tender, Lungs Clear, Normal Breath Sounds Cardiovascular: Regular Rate, Rhythm, No Edema, Normal Peripheral Pulses Gastrointestinal: Normal Bowel Sounds, Tenderness (Mild on light palpation of LLQ) Extremity: No Pedal Edema Neurologic/Psychiatric: Alert, Oriented x3 Skin: Normal Color, Warm/Dry, Other (incisions clean with some serosangineous discharge) Results/Procedures Lab Laboratory Tests 11/16/22 05:34 Patient resulted labs reviewed. Assessment/Plan Assessment and Plan Assess & Plan/Chief Complaint 2 days s/p colostomy reversal Leukocytosis - improved - S/p Soumya procedure of splenic flexure for perforated diverticulitis (07/29/22) - Cefazolin and metronidazole per surgery - Patient on soft diet per surgery AFib AfFib ablation in 2019 Chronic anticoagulation - NSR at this time - Cardiology consulted and without concerns - Continue home flecainide 100 mg bid - Restart Xarelto pending approval by surgery Hyperlipidemia - Continue home atorvostatin 10 mg Hypothyroidism - Continue home levothyroxine 50 mg Patient having flatus and ambulating without difficultly. Leukocytosis is nearly resolved. From our standpoint, the patient can be discharged and we will defer to surgery. We are signing off today and appreciate the consultation. NENA BABRA MD 11/16/227: Assessment/Plan Assessment and Plan Assess & Plan/Chief Complaint Patient reports doing well. Pain improved. Up ambulating. Passing flatus. Discussed with Dr Izquierdo and will advance to soft diet. Pt is hopeful to DC home and per Dr Izquierdo likely will. Will sign off and medically is doing well. Please call with any needs. Supervisory-Addendum Brief Verification & Attestation Participated in pt care: history, MDM, physical Personally performed: exam, history, MDM, supervision of care Care discussed with: Medical Student Procedures: n/a Results interpretation: Verified all documentation Verification and Attestation of Medical Student E/M Service A medical student performed and documented this service in my presence. I reviewed and verified all information documented by the medical student and made modifications to such information, when appropriate. I personally performed the physical exam and medical decision making. Nena Barba, Nov 16, 2022,21:55 NATHAN MCKEON Nov 16, 2022 11:42 NENA BARBA MD Nov 16, 2022 21:57
[2022-11-16 12:00] VITALS: BP 125/81
[2022-11-16] MEDS ORDERED: ACHD5005 PO (13:12)
--- NOTE | 2022-11-16 13:14 | Discharge Inst-Surgical ---
Discharge Inst-Surgical Depart Medication/Instructions New, Converted or Re-Newed RX: Transmitted to Pharmacy Patient Instructions Follow up Appt: Make appointment for 1 week. [phone] Instructions: No lifting greater than 20 pounds. No strenuous activity. May shower in 24 hours, no tub bath or soaking. Use incentive spirometer at home as directed. No Smoking Skin/Wound Care: May remove bandages in am. You need to leave the consuelo in place and come in to office to have them removed. Symptoms to Report: Appetite Changes, Extremity Discoloration, Numbness/Tingling, Swelling Increased, Bleeding Excessive, Eyesight Changes, Pain Increased, Urine Color Change, Constipation(Persistent), Fever over 101 degree F, Pain/Pressure in chest, Urinating Difficulty, Cough Up/Vomit Blood, Heart Beat Irreg/Pounding, Pain/Pressure in jaw, Cramps in feet or legs, Lightheadedness, Pain/Pressure in shoulder, Diarrhea(Persistent), Memory Changes Suddenly, Questions/Concerns, Weight gain consecutive days, Dizziness/Fainting, Nausea/Vomiting, Shortness of Breath, Weight gain over 2 pounds If questions or concerns contact your physician Or seek help at emergency department. Activity Activity as Tolerated: Yes Activity Instructions: Avoid Stress to Incision Driving Instructions: No Driving/Refer to Dr. Rivera Discharge Diet: Low Residue If Any Problems/Questions/Issu: Contact Your Physician, Go to Emergency Room Skin/Wound Care Infection Signs and Symptoms: Increased Redness, Foul Odor of Wound, Increased Drainage, Skin Itchy or Has a Rash, Increased Swelling, Temperature Above 101 F Bathing Instructions: Shower Stitches/[place]ermabond Dis: Care of PEREZ Contreras DO Nov 16, 2022 13:14
[2022-11-16] MEDS ORDERED: RIVAROXABAN 20 MG TABLET (XARELTO) PO SCH (17:00)
== END 2022-11-16 14:00 | disposition home or self-care (01) | DRG 328 ==
LOC: 4TH 08:02 → SURG 08:03 → 4TH 14:08 → SURG 14:08 → 4TH 14:11
PROVIDERS: ADMIT Surgery; ATTEND Surgery
PROC: 0DSM0ZZ Reposition Descending Colon, Open Approach (ICD-10-PCS; principal; 2022-11-15)
PROC: 0DN60ZZ Release Stomach, Open Approach (ICD-10-PCS; 2022-11-15)
PROC: 0DNM0ZZ Release Descending Colon, Open Approach (ICD-10-PCS; 2022-11-15)
PROC: 0DCN8ZZ Extirpation of Matter from Sigmoid Colon, Via Natural or Artificial Opening Endoscopic (ICD-10-PCS; 2022-11-15)
DX: Z43.3 Encounter for attention to colostomy (principal); E03.9 Hypothyroidism, unspecified; E78.5 Hyperlipidemia, unspecified; I48.0 Paroxysmal atrial fibrillation; I10 Essential (primary) hypertension; K56.41 Fecal impaction; Z79.01 Long term (current) use of anticoagulants; Z79.899 Other long term (current) drug therapy
CPT/HCPCS: 36415; 80048; 83735; 85027; 86850; 86900; 86901; 87081; 94664; 94760